=== PATIENT | female | born 1970 | race Caucasian/White ===

== ENCOUNTER 2016-10-27 18:41 | Emergency (ER) | payer MEDICAID ==
[~2016-10-27] VITALS: Ht 167.6 cm; Wt 63.5 kg
[~2016-10-27 18:41] MED LIST: NKM
[2016-10-27 18:42] VITALS: BP 119/81
--- NOTE | 2016-10-27 18:45 | Emergency Room Report ---
History of Present Illness General Chief Complaint: Back Injury Source: EMS Present Illness HPI The patient is a 46 -year-old female brought in by ambulance for back pain. She is unsure when it started or how it occurred. She does admit to having several alcoholic drinks and smoking marijuana prior to arriving. Pain is a 10 out of 10 dull ache to the lower back. She does not providing information beyond this. Allergies: Coded Allergies: No Known Allergies (Unverified , 10/27/16) Patient History Past Medical History: see triage record Pertinent Family History: none Last Menstrual Period: UNK Reviewed Nursing Documentation: PMH: Agreed, PSxH: Agreed Nursing Documentation-PMH Past Medical History: No Stated History Review of Systems All Other Systems: limited Physical Exam Vital Signs Date Time Temp Pulse Resp B/P Pulse Ox O2 Delivery O2 Flow Rate FiO2 10/27/16 18:34 98.2 76 16 119/81 94 Room Air Sp02 EP Interpretation: reviewed, normal General Appearance: no apparent distress, GCS 15, non-toxic Head: normocephalic, atraumatic Eyes: bilateral eye PERRL, bilateral eye normal inspection ENT: hearing grossly normal, normal pharynx, no angioedema, normal voice Musculoskeletal: back normal, gait/station normal, normal range of motion, non- tender Neurologic: alert, responsive, sensory intact Skin: normal color, no rash, normal turgor Medical Decision Making PA Attestation Dr. Lowry is my supervising physician. Patient management was discussed with my supervising physician Diagnostic Impression: Primary Impression: Alcohol intoxication Qualified Codes: F10.920 - Alcohol use, unspecified with intoxication, uncomplicated Additional Impression: Back pain Qualified Codes: M54.5 - Low back pain ER Course The patient is a 46-year-old female presenting for back pain Ddx considered include but not limited to alcohol intoxication, drug abuse, lumbar strain, degenerative disease, cauda equina, narcotic dependency,among others PE:NAD. Lethargic with slurred speech. Back is non tender. No deformity. No lesions. Pt is asleep She is given IV fluids and zofran The patient is given time to rest in the emergency department. Upon reevaluation, the patient has awoken and is more alert. She denies any pain at this time. She is able to ambulate without any difficulty. To be discharged home with prescription for Motrin. ER precautions are given Last Vital Signs Date Time Temp Pulse Resp B/P Pulse Ox O2 Delivery O2 Flow Rate FiO2 10/27/16 18:42 98.2 16 119/81 94 Room Air 10/27/16 18:34 76 Status: improved Disposition: HOME, SELF-CARE Condition: Improved Scripts Ibuprofen* (MOTRIN*) 600 Mg Tablet 600 MG ORAL Q8H Y for For Pain, #30 TAB 0 Refills Prov: KIRBY AGUAYO 10/27/16 KIRBY AGUAYO Oct 27, 2016 18:45
[2016-10-27 20:28] VITALS: BP 112/75
[2016-10-27] MEDS ORDERED: IBUPROFEN600 MG ORAL (21:34)
[2016-10-27 21:40] VITALS: BP 114/72
[2016-10-27 21:53] VITALS: BP 114/72
[2016-10-28] MEDS ORDERED: CYMBALTA30 MG ORAL (17:28)
== END 2016-10-27 21:53 | disposition home or self-care (01) ==
LOC: EDBD 18:41 → EMR 18:55
DX: F10.920 Alcohol use, unspecified with intoxication, uncomplicated (principal); M54.5 Low back pain; F12.90 Cannabis use, unspecified, uncomplicated
CPT/HCPCS: 96374; 96375; 99284; J2405

== ENCOUNTER 2016-10-28 15:42 | Emergency (ER) | payer MEDICAID ==
[~2016-10-28] VITALS: Ht 165.1 cm; Wt 56.7 kg
[2016-10-28 15:42] VITALS: BP 129/74
[~2016-10-28 15:42] MED LIST changes: +IBUPROFEN600 MG ORAL
--- NOTE | 2016-10-28 15:54 | Emergency Room Report ---
History of Present Illness General Chief Complaint: Pain Source: Patient (Tai Matt M.D.) Present Illness HPI Patient presents with low back pain. She was seen yesterday for the same complaint. She's been drinking alcohol. She alleged yesterday she was smoking marijuana also. She's been drinking because she's depressed because her nephew is 3 years old his dying of heart disease. She claims she's an alcoholic. The patient states that when she has pain like she does now it usually because she passing kidney stone. Denies any fevers, cough or dysuria. She states she is not at this time. 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 [employer] Last Menstrual Period: 10/23/16 Now: No Reviewed Nursing Documentation: PMH: Agreed, PSxH: Agreed (Tai Matt M.D.) Review of Systems All Other Systems: negative except mentioned in HPI (Tai Matt M.D.) Physical Exam Vital Signs Date Time Temp Pulse Resp B/P Pulse Ox O2 Delivery O2 Flow Rate FiO2 10/28/16 15:34 98.1 82 18 129/74 99 Room Air Sp02 EP Interpretation: reviewed, normal General Appearance: well appearing, no apparent distress, GCS 15, other - alcohol on breath Head: normocephalic Eyes: bilateral eye PERRL, bilateral eye Scleral Injection ENT: moist mucus membranes Neck: supple Respiratory: lungs clear, normal breath sounds Cardiovascular #1: regular rate, rhythm Cardiovascular #2: 2+ radial (R) Gastrointestinal: normal inspection, normal bowel sounds, non tender, no mass, non-distended Genitourinary: no CVA tenderness Musculoskeletal: digits/nails normal, normal range of motion, tender - lumbar area, no bony tenderness, able to ambulate Neurologic: alert, oriented x3, motor strength/tone normal, DTRs symmetric, sensory intact, other - slurred speech Psychiatric: no suicidal/homicidal ideation, depressed affect Skin: normal inspection, warm/dry (Tai Matt M.D.) Medical Decision Making Diagnostic Impression: Primary Impression: Pyelonephritis Additional Impressions: Alcohol intoxication Qualified Codes: F10.929 - Alcohol use, unspecified with intoxication, unspecified Trichomonal infection Persistent vomiting Non-obstructive renal stone L ER Course Patient presents again with alcohol ingestion and complaints of back pain. laboratory will be obtained and the patient be treated with IV hydration. In addition to that thiamine. She's complaining about nausea and we will treat that with Zofran. Leukocytosis and pyuria. Antibiotics ordered. Still complained of pain. Reglan and benadryl given. Improved. Ambulatory. Still with pain L lower back and concerned about possible renal stone. CT ordered. Patient signed out to Dr. Morocho. Laboratory Tests Test 10/28/16 16:10 10/28/16 16:20 Urine Color Pale yellow Urine Appearance Cloudy Urine pH 6 (4.5-8.0) Urine Specific [place] 1.020 (1.005-1.035) Urine Protein 3+ (NEGATIVE) H Urine Glucose (UA) Negative (NEGATIVE) Urine Ketones 4+ (NEGATIVE) H Urine Occult Blood 4+ (NEGATIVE) H Urine Nitrite Negative (NEGATIVE) Urine Bilirubin Negative (NEGATIVE) Urine Urobilinogen Normal MG/DL (0.0-1.0) Urine Leukocyte Esterase 1+ (NEGATIVE) H Urine RBC 15-20 /HPF (0 - 2) H Urine WBC 10-15 /HPF (0 - 2) H Urine Squamous Epithelial Cells Many /LPF (NONE/OCC) H Urine Bacteria Many /HPF (NONE) H Urine Trichomonas Moderate /HPF (NONE) H Urine HCG, Qualitative Negative Urine Opiates Screen Negative (NEGATIVE) Urine Barbiturates Screen Negative (NEGATIVE) Phencyclidine (PCP) Screen Negative (NEGATIVE) Urine Amphetamines Screen Negative (NEGATIVE) Urine Benzodiazepines Screen Negative (NEGATIVE) Urine Cocaine Screen Negative (NEGATIVE) Urine Marijuana (THC) Screen Positive (NEGATIVE) H White Blood Count 16.6 K/UL (4.8-10.8) H Red Blood Count 4.46 M/UL (4.20-5.40) Hemoglobin 14.3 G/DL (12.0-16.0) Hematocrit 41.0 % (37.0-47.0) Mean Corpuscular Volume 92 FL (80-99) Mean Corpuscular Hemoglobin 32.1 PG (27.0-31.0) H Mean Corpuscular Hemoglobin Concent 34.8 G/DL (32.0-36.0) Red Cell Distribution Width 13.7 % (11.6-14.8) Platelet Count 285 K/UL (150-450) Mean Platelet Volume 7.5 FL (6.5-10.1) Neutrophils (%) (Auto) 82.7 % (45.0-75.0) H Lymphocytes (%) (Auto) 9.1 % (20.0-45.0) L Monocytes (%) (Auto) 7.7 % (1.0-10.0) Eosinophils (%) (Auto) 0.0 % (0.0-3.0) Basophils (%) (Auto) 0.5 % (0.0-2.0) Sodium Level 137 mEQ/L (135-145) Potassium Level 3.7 mEQ/L (3.4-4.9) Chloride Level 90 mEQ/L (98-107) L Carbon Dioxide Level 18 mEQ/L (20-30) L Anion Gap 29 (5-15) H Blood Urea Nitrogen 23 mg/dL (7-23) Creatinine 0.8 mg/dL (0.5-0.9) Estimate Glomerular Filtration Rate > 60 mL/min (>60) Glucose Level 101 mg/dL (74-106) Calcium Level 9.0 mg/dL (8.6-10.2) Total Bilirubin 0.5 mg/dL (0.0-1.2) Aspartate Amino Transferase (AST) 51 U/L (5-40) H Alanine Aminotransferase (ALT) 22 U/L (3-33) Alkaline Phosphatase 85 U/L (35-104) Total Creatine Kinase 383 U/L (26-140) H Total Protein 7.7 g/dL (6.6-8.7) Albumin 5.1 g/dL (3.5-5.2) Globulin 2.6 g/dL Albumin/Globulin Ratio 1.9 (1.0-2.7) Salicylates Level < 1 mg/dL (10-30) L Acetaminophen Level < 10 ug/mL (10-30) L Serum Alcohol 387 mg/dL (Tai Matt M.D.) ER Course Please refer to the initial note for the history exam and presentation At this time the case was signed out pending CAT scan imaging patient has also had repeated episodes of nausea Urine sample does reveal evidence of UTI there was also evidence of trichomonas Patient's CAT scan at this time shows a nonobstructive to millimeter stone in the lower pole of the kidney on the left, there is no signs of hydronephrosis or obstructive pathology there was some hazy appearance of the central mesentery Patient has done better on repeat evaluation given the ongoing discomfort however nausea vomiting patient placed into admission secondary to insurance purposes requires transfer patient is hemodynamically stable for that Labs Test 10/28/16 16:10 10/28/16 16:20 Urine Color Pale yellow Urine Appearance Cloudy Urine pH 6 (4.5-8.0) Urine Specific [place] 1.020 (1.005-1.035) Urine Protein 3+ (NEGATIVE) Urine Glucose (UA) Negative (NEGATIVE) Urine Ketones 4+ (NEGATIVE) Urine Occult Blood 4+ (NEGATIVE) Urine Nitrite Negative (NEGATIVE) Urine Bilirubin Negative (NEGATIVE) Urine Urobilinogen Normal MG/DL (0.0-1.0) Urine Leukocyte Esterase 1+ (NEGATIVE) Urine RBC 15-20 /HPF (0 - 2) Urine WBC 10-15 /HPF (0 - 2) Urine Squamous Epithelial Cells Many /LPF (NONE/OCC) Urine Bacteria Many /HPF (NONE) Urine Trichomonas Moderate /HPF (NONE) Urine HCG, Qualitative Negative Urine Opiates Screen Negative (NEGATIVE) Urine Barbiturates Screen Negative (NEGATIVE) Phencyclidine (PCP) Screen Negative (NEGATIVE) Urine Amphetamines Screen Negative (NEGATIVE) Urine Benzodiazepines Screen Negative (NEGATIVE) Urine Cocaine Screen Negative (NEGATIVE) Urine Marijuana (THC) Screen Positive (NEGATIVE) White Blood Count 16.6 K/UL (4.8-10.8) Red Blood Count 4.46 M/UL (4.20-5.40) Hemoglobin 14.3 G/DL (12.0-16.0) Hematocrit 41.0 % (37.0-47.0) Mean Corpuscular Volume 92 FL (80-99) Mean Corpuscular Hemoglobin 32.1 PG (27.0-31.0) Mean Corpuscular Hemoglobin Concent 34.8 G/DL (32.0-36.0) Red Cell Distribution Width 13.7 % (11.6-14.8) Platelet Count 285 K/UL (150-450) Mean Platelet Volume 7.5 FL (6.5-10.1) Neutrophils (%) (Auto) 82.7 % (45.0-75.0) Lymphocytes (%) (Auto) 9.1 % (20.0-45.0) Monocytes (%) (Auto) 7.7 % (1.0-10.0) Eosinophils (%) (Auto) 0.0 % (0.0-3.0) Basophils (%) (Auto) 0.5 % (0.0-2.0) Sodium Level 137 mEQ/L (135-145) Potassium Level 3.7 mEQ/L (3.4-4.9) Chloride Level 90 mEQ/L (98-107) Carbon Dioxide Level 18 mEQ/L (20-30) Anion Gap 29 (5-15) Blood Urea Nitrogen 23 mg/dL (7-23) Creatinine 0.8 mg/dL (0.5-0.9) Estimat Glomerular Filtration Rate > 60 mL/min (>60) Glucose Level 101 mg/dL (74-106) Calcium Level 9.0 mg/dL (8.6-10.2) Total Bilirubin 0.5 mg/dL (0.0-1.2) Aspartate Amino Transf (AST/SGOT) 51 U/L (5-40) Alanine Aminotransferase (ALT/SGPT) 22 U/L (3-33) Alkaline Phosphatase 85 U/L (35-104) Total Creatine Kinase 383 U/L (26-140) Total Protein 7.7 g/dL (6.6-8.7) Albumin 5.1 g/dL (3.5-5.2) Globulin 2.6 g/dL Albumin/Globulin Ratio 1.9 (1.0-2.7) Salicylates Level < 1 mg/dL (10-30) Acetaminophen Level < 10 ug/mL (10-30) Serum Alcohol 387 mg/dL (MARISOL MOROCHO D.O.) Rhythm Strip Diag. Results EP Interpretation: yes Rhythm: NSR, no PVC's, no ectopy (Tai Matt M.D.) CT/MRI/US Diagnostic Results CT/MRI/US Diagnostic Results : Imaging Test Ordered: abd pelvis (Tai Matt M.D.) CT/MRI/US Diagnostic Results : Impression CT abdomen pelvis: Nonobstructive 2 mm stone left lower pole left kidney no hydronephrosis, no obstruction, hazy appearance of central mesentery likely mesenteritis (MARISOL MOROCHO D.O.) Last Vital Signs Date Time Temp Pulse Resp B/P Pulse Ox O2 Delivery O2 Flow Rate FiO2 10/29/16 01:13 98.7 74 16 123/76 100 Room Air Status: improved (Tai Matt M.D.) Status: improved (MARISOL MOROCHO D.O.) Disposition: XFER SHT-TRM HOSP Condition: Serious - stable for transfer Tai Matt M.D. Oct 28, 2016 15:54 MARISOL MOROCHO D.O. Oct 29, 2016 00:33
[2016-10-28] MEDS ORDERED: Tubing IV Cassette IV ONE (16:16)
[2016-10-28 16:36] LABS: BASOPHILS % (AUTO) 0.5 % (0.0-2.0); LYMPHOCYTES % (AUTO) 9.1 % (20.0-45.0); MEAN CORPUSCULAR HEMOGLOBIN 32.1 PG (27.0-31.0); MEAN CORPUSCULAR HGB CONC 34.8 G/DL (32.0-36.0); MEAN CORPUSCULAR VOLUME 92 FL (80-99); MEAN PLATELET VOLUME 7.5 FL (6.5-10.1); MONOCYTES % (AUTO) 7.7 % (1.0-10.0); NEUTROPHILS % (AUTO) 82.7 % (45.0-75.0); PLATELET COUNT 285 K/UL (150-450); RED BLOOD COUNT 4.46 M/UL (4.20-5.40); RED CELL DISTRIBUTION WIDTH 13.7 % (11.6-14.8); WHITE BLOOD COUNT 16.6 K/UL (4.8-10.8)
[2016-10-28 16:41] LABS: APPEARANCE,URINE CLOUDY; KETONES,URINE 4+ (NEGATIVE); LEUKOCYTE ESTERASE ,URINE 1+ (NEGATIVE); NITRITE,URINE NEGATIVE (NEGATIVE); PH,URINE 6 (4.5-8.0); PROTEIN,URINE 3+ (NEGATIVE); UROBILINOGEN,URINE NORMAL MG/DL (0.0-1.0)
[2016-10-28] MEDS ORDERED: Famotidine 20 MG/ 2ML VIAL IVP ONE (16:45)
[2016-10-28 16:50] LABS: RBC,URINE 15-20 /HPF (0 - 2)
[2016-10-28 16:51] LABS: BACTERIA,URINE MANY /HPF; SQUAMOUS EPITHELIAL CELL,UR MANY /LPF (NONE/OCC); TRICHOMONAS,URINE MODERATE /HPF
[2016-10-28 16:57] LABS: ACETAMINOPHEN < 10 ug/mL (10-30); ALANINE AMINOTRANSFERASE 22 U/L (3-33); ALBUMIN/GLOBULIN RATIO 1.9 (1.0-2.7); ALCOHOL 387 mg/dL; ANION GAP 29 (5-15); ASPARTATE AMINO TRANSFERASE 51 U/L (5-40); CARBON DIOXIDE 18 mEQ/L (20-30); CHLORIDE 90 mEQ/L (98-107); CREATININE 0.8 mg/dL (0.5-0.9); GLOMERULAR FILTRATION RATE > 60 mL/min (>60); HEMOLYSIS 15; POTASSIUM 3.7 mEQ/L (3.4-4.9); SODIUM 137 mEQ/L (135-145); TOTAL PROTEIN 7.7 g/dL (6.6-8.7)
[2016-10-28] MEDS ORDERED: cefTRIAXone 1 GM in NS 55 ML IVPB ONE (17:00)
[2016-10-28] MEDS ORDERED: CYMBALTA30 MG ORAL (17:28)
[2016-10-28 18:00] VITALS: BP 132/73
[2016-10-28] MEDS ORDERED: DiphenhydrAMINE 50mg/ml Inj IVP ONE (18:00)
[2016-10-28] MEDS ORDERED: Metoclopramide 10mg/2ml Inj IVP ONE (18:00)
[2016-10-28 21:06] VITALS: BP 122/75
[2016-10-28] MEDS ORDERED: metroNIDAZOLE 500mg 100 ML IVPB ONE (22:15)
[2016-10-29 00:29] VITALS: BP 123/76
[2016-10-29 01:13] VITALS: BP 123/76
--- NOTE | 2016-10-29 09:42 | Diagnostic Imaging Report ---
Indication: Abdominal pain Technique: Continuous helical transaxial imaging of the abdomen and pelvis was obtained from the lung bases to the pubic symphysis. No intravenous contrast was administered. Coronal 2-D reformats were also obtained. Total Dose length Product (DLP): [address] Dose Index Volume (CTDIvol): 13 mGy Comparison: none Findings: There is a 2 mm stone in the lower pole the left kidney. There is no hydronephrosis demonstrated bilaterally. Urinary bladder is mildly distended. The liver is hypodense consistent with fatty infiltration. No evidence of free fluid or free air. There is a small right inguinal hernia containing fat. Uterus is noted. Appendix is normal. Lung bases are clear. Impression: Small nonobstructive stone in the left kidney Normal appendix Fatty liver Small right inguinal hernia containing fat [facility] has communicated the preliminary results to the Emergency Department. Their findings are largely concordant with this report. The CT scanner at [facility] is accredited by the [employer] and the scans are performed using dose optimization techniques as appropriate to a performed exam including Automatic Exposure control.
== END 2016-10-29 01:13 | disposition short-term general hospital (02) ==
LOC: EDBD 15:42 → EMR 16:12
DX: N12 Tubulo-interstitial nephritis, not specified as acute or chronic (principal); F10.129 Alcohol abuse with intoxication, unspecified; Y90.8 Blood alcohol level of 240 mg/100 ml or more; R11.10 Vomiting, unspecified; A59.9 Trichomoniasis, unspecified; N20.0 Calculus of kidney; F12.10 Cannabis abuse, uncomplicated; N39.0 Urinary tract infection, site not specified
CPT/HCPCS: 36415; 74176; 80053; 80300; 80329; 81003; 81025; 82550; 85025; 87086; 96360; 96361; 96374; 96375; 99285; J0696; J1200; J2405; J2765; S0028

== ENCOUNTER 2017-04-04 15:25 | Emergency (ER) | payer MEDICAID ==
[~2017-04-04] VITALS: Ht 165.1 cm; Wt 59.0 kg
[~2017-04-04 15:25] MED LIST changes: +CYMBALTA30 MG ORAL
--- NOTE | 2017-04-04 15:51 | Emergency Room Report ---
History of Present Illness General Chief Complaint: Nausea, Vomiting, and Diarrhea Source: Patient Present Illness HPI Patient is a 46-year-old female who presents with complaints of emesis that began at 3 this morning. She states she's had multiple episodes of emesis since that time. Last episode of emesis upon arrival. She denies any diarrhea , abdominal pain, fever, chills or associated symptoms. She denies any sick contacts and states she has not eaten anything out of the ordinary. Allergies: Coded Allergies: No Known Allergies (Unverified , 10/27/16) Patient History Last Menstrual Period: last week Reviewed Nursing Documentation: PMH: Agreed, PSxH: Agreed Nursing Documentation-PMH Past Medical History: No History, Except For Hx Hypertension: Yes History Of Psychiatric Problem: Yes - Anxiety Review of Systems Gastrointestinal: Reports: nausea, vomiting All Other Systems: negative except mentioned in HPI Physical Exam Vital Signs Date Time Temp Pulse Resp B/P (MAP) Pulse Ox O2 Delivery O2 Flow Rate FiO2 04/04/17 15:22 98.2 65 18 138/100 98 Room Air Sp02 EP Interpretation: reviewed, normal General Appearance: no apparent distress, alert, GCS 15, non-toxic Head: normocephalic, atraumatic Eyes: bilateral eye normal inspection, bilateral eye PERRL ENT: hearing grossly normal, normal pharynx, no angioedema, normal voice Neck: full range of motion, supple/symm/no masses Respiratory: chest non-tender, lungs clear, normal breath sounds, speaking full sentences Cardiovascular #1: regular rate, rhythm, no edema Cardiovascular #2: 2+ carotid (R), 2+ carotid (L), 2+ radial (R), 2+ radial (L) , 2+ dorsalis pedis (R), 2+ dorsalis pedis (L) Gastrointestinal: normal bowel sounds, non tender, soft, non-distended, no guarding, no rebound Rectal: deferred Genitourinary: normal inspection, no CVA tenderness, other - negative murphys, negative mcburneys, negative rovsings Musculoskeletal: back normal, gait/station normal, normal range of motion, non- tender, calf tenderness Neurologic: alert, oriented x3, responsive, motor strength/tone normal, sensory intact, speech normal Psychiatric: judgement/insight normal, memory normal, mood/affect normal, no suicidal/homicidal ideation Reflexes: 3+ bicep (R), 3+ bicep (L), 3+ tricep (R), 3+ tricep (L), 3+ knee (R) , 3+ knee (L) Skin: normal color, no rash, warm/dry, well hydrated Lymphatic: no adenopathy Medical Decision Making PA Attestation supervising physician Dr. Austin Diagnostic Impression: Primary Impression: Nausea & vomiting Additional Impression: Acute cystitis ER Course Labs are within normal limits. Patient is given Zofran twice with improvement of symptoms on reevaluation. Patient initially vomiting after first dose of Zofran, second dose of Zofran was given with resolution of symptoms. labs are within normal limits, no leukocytosis. LFTs are normal. Patient is found to have a UTI on UA. No evidence of pyelonephritis. Low index of suspicion for appendicitis or cholecystitis. She was given Zofran and normal saline with improvement in symptoms. Discharged home with Zofran and Keflex. Instructed to follow up with PCP for evaluation. Imaging considered not indicated at this time. Patient understands and is agreeable to plan Laboratory Tests Test 04/04/17 16:15 White Blood Count 8.6 K/UL (4.8-10.8) Red Blood Count 4.54 M/UL (4.20-5.40) Hemoglobin 13.9 G/DL (12.0-16.0) Hematocrit 41.4 % (37.0-47.0) Mean Corpuscular Volume 91 FL (80-99) Mean Corpuscular Hemoglobin 30.5 PG (27.0-31.0) Mean Corpuscular Hemoglobin Concent 33.5 G/DL (32.0-36.0) Red Cell Distribution Width 15.3 % (11.6-14.8) H Platelet Count 307 K/UL (150-450) Mean Platelet Volume 7.0 FL (6.5-10.1) Neutrophils (%) (Auto) 79.0 % (45.0-75.0) H Lymphocytes (%) (Auto) 12.8 % (20.0-45.0) L Monocytes (%) (Auto) 7.7 % (1.0-10.0) Eosinophils (%) (Auto) 0.0 % (0.0-3.0) Basophils (%) (Auto) 0.5 % (0.0-2.0) Urine Color Yellow Urine Appearance Slightly cloudy Urine pH 7 (4.5-8.0) Urine Specific [place] 1.015 (1.005-1.035) Urine Protein 3+ (NEGATIVE) H Urine Glucose (UA) Negative (NEGATIVE) Urine Ketones 2+ (NEGATIVE) H Urine Occult Blood 3+ (NEGATIVE) H Urine Nitrite Positive (NEGATIVE) H Urine Bilirubin Negative (NEGATIVE) Urine Urobilinogen 1 MG/DL (0.0-1.0) H Urine Leukocyte Esterase 2+ (NEGATIVE) H Urine RBC 15-20 /HPF (0 - 2) H Urine WBC 10-15 /HPF (0 - 2) H Urine Squamous Epithelial Cells Few /LPF (NONE/OCC) Urine Bacteria Many /HPF (NONE) H Urine HCG, Qualitative Negative Sodium Level 134 MMOL/L (136-145) L Potassium Level 4.3 MMOL/L (3.5-5.1) Chloride Level 98 MMOL/L (98-107) Carbon Dioxide Level 22 MMOL/L (21-32) Anion Gap 14 mmol/L (5-15) Blood Urea Nitrogen 10 mg/dL (7-18) Creatinine 0.8 MG/DL (0.55-1.30) Estimate Glomerular Filtration Rate > 60 mL/min (>60) Glucose Level 105 MG/DL (74-106) Calcium Level 9.4 MG/DL (8.5-10.1) Total Bilirubin 0.7 MG/DL (0.2-1.0) Aspartate Amino Transferase (AST) 38 U/L (15-37) H Alanine Aminotransferase (ALT) 19 U/L (12-78) Alkaline Phosphatase 85 U/L (46-116) Total Protein 8.2 G/DL (6.4-8.2) Albumin 4.2 G/DL (3.4-5.0) Globulin 4.0 g/dL Albumin/Globulin Ratio 1.0 (1.0-2.7) Last Vital Signs Date Time Temp Pulse Resp B/P (MAP) Pulse Ox O2 Delivery O2 Flow Rate FiO2 04/04/17 15:22 98.2 65 18 138/100 98 Room Air Status: improved Disposition: HOME, SELF-CARE Condition: Stable Scripts Ondansetron Odt* (ZOFRAN ODT*) 4 Mg Tab.rapdis 4 MG ORAL Q6H Y for Nausea & Vomiting, #30 TAB Prov: Jennifer Mae 04/04/17 Cephalexin* (KEFLEX*) 500 Mg Capsule 500 MG ORAL EVERY 12 HOURS, #14 CAP 0 Refills Prov: Jennifer Mae 04/04/17 Jennifer Mae Apr 04, 2017 15:51
[2017-04-04 16:41] LABS: APPEARANCE,URINE SLIGHTLY CLOUDY; BILIRUBIN, URINE NEGATIVE (NEGATIVE); GLUCOSE, URINE (UA) NEGATIVE (NEGATIVE); KETONES,URINE 2+ (NEGATIVE); LEUKOCYTE ESTERASE ,URINE 2+ (NEGATIVE); NITRITE,URINE POSITIVE (NEGATIVE); PH,URINE 7 (4.5-8.0); PROTEIN,URINE 3+ (NEGATIVE); UROBILINOGEN,URINE 1 MG/DL (0.0-1.0)
[2017-04-04 16:45] LABS: ANION GAP 14 mmol/L (5-15); BLOOD UREA NITROGEN 10 mg/dL (7-18); CALCIUM 9.4 MG/DL (8.5-10.1); CARBON DIOXIDE 22 MMOL/L (21-32); CHLORIDE 98 MMOL/L (98-107); CREATININE 0.8 MG/DL (0.55-1.30); POTASSIUM 4.3 MMOL/L (3.5-5.1); SODIUM 134 MMOL/L (136-145)
[2017-04-04 16:50] LABS: ALANINE AMINOTRANSFERASE 19 U/L (12-78); ALBUMIN 4.2 G/DL (3.4-5.0); ALKALINE PHOSPHATASE 85 U/L (46-116); ASPARTATE AMINO TRANSFERASE 38 U/L (15-37); BILIRUBIN,TOTAL 0.7 MG/DL (0.2-1.0)
[2017-04-04 16:52] LABS: COLOR,URINE YELLOW
[2017-04-04 17:01] LABS: BASOPHILS % (AUTO) 0.5 % (0.0-2.0); HEMATOCRIT 41.4 % (37.0-47.0); HEMOGLOBIN 13.9 G/DL (12.0-16.0); LYMPHOCYTES % (AUTO) 12.8 % (20.0-45.0); MEAN CORPUSCULAR VOLUME 91 FL (80-99); MONOCYTES % (AUTO) 7.7 % (1.0-10.0); PLATELET COUNT 307 K/UL (150-450); RED BLOOD COUNT 4.54 M/UL (4.20-5.40); RED CELL DISTRIBUTION WIDTH 15.3 % (11.6-14.8); WHITE BLOOD COUNT 8.6 K/UL (4.8-10.8)
[2017-04-04 17:30] VITALS: BP 108/68
[2017-04-04] MEDS ORDERED: ZOFRAN ODT4 MG ORAL (18:52)
[2017-04-04] MEDS ORDERED: CEPHALEXIN500 MG ORAL (18:52)
[2017-04-04 19:02] VITALS: BP 114/74
[2017-05-08] MEDS ORDERED: NKM (14:56)
== END 2017-04-04 19:02 | disposition home or self-care (01) ==
LOC: EDBD 15:25 → EMR 15:58
DX: R11.2 Nausea with vomiting, unspecified (principal); N30.00 Acute cystitis without hematuria; I10 Essential (primary) hypertension; F41.9 Anxiety disorder, unspecified
CPT/HCPCS: 36415; 80053; 81001; 81025; 85025; 87086; 87181; 96361; 96374; 96375; 99284; J2405

== ENCOUNTER 2017-05-08 14:56 | Emergency (ER) | payer MEDICAID ==
[~2017-05-08] VITALS: Ht 165.1 cm; Wt 59.0 kg
[~2017-05-08 14:56] MED LIST changes: +CEPHALEXIN500 MG ORAL; +ZOFRAN ODT4 MG ORAL
[2017-05-08 15:08] VITALS: BP 134/69
[2017-05-08] MEDS ORDERED: Morphine Sulfate 4mg/ml Inj IVP ONE ×2 (15:15→17:00)
[2017-05-08 15:44] LABS: APPEARANCE,URINE CLEAR; BILIRUBIN, URINE NEGATIVE (NEGATIVE); COLOR,URINE PALE YELLOW; GLUCOSE, URINE (UA) NEGATIVE (NEGATIVE); HEMATOCRIT 43.3 % (37.0-47.0); HEMOGLOBIN 14.3 G/DL (12.0-16.0); KETONES,URINE 4+ (NEGATIVE); LEUKOCYTE ESTERASE ,URINE NEGATIVE (NEGATIVE); MEAN CORPUSCULAR VOLUME 94 FL (80-99); NITRITE,URINE NEGATIVE (NEGATIVE); PH,URINE 5 (4.5-8.0); PLATELET COUNT 345 K/UL (150-450); PROTEIN,URINE 2+ (NEGATIVE); RED CELL DISTRIBUTION WIDTH 16.3 % (11.6-14.8); UROBILINOGEN,URINE NORMAL MG/DL (0.0-1.0); WHITE BLOOD COUNT 15.1 K/UL (4.8-10.8)
[2017-05-08 15:46] LABS: BASOPHILS % (AUTO) 0.6 % (0.0-2.0); LYMPHOCYTES % (AUTO) 4.3 % (20.0-45.0); MONOCYTES % (AUTO) 3.9 % (1.0-10.0); NEUTROPHILS % (AUTO) 91.2 % (45.0-75.0)
[2017-05-08 16:05] LABS: ALANINE AMINOTRANSFERASE 32 U/L (12-78); ALBUMIN 4.1 G/DL (3.4-5.0); ALKALINE PHOSPHATASE 102 U/L (46-116); ANION GAP 31 mmol/L (5-15); ASPARTATE AMINO TRANSFERASE 57 U/L (15-37); BILIRUBIN,TOTAL 0.3 MG/DL (0.2-1.0); BLOOD UREA NITROGEN 12 mg/dL (7-18); CALCIUM 8.9 MG/DL (8.5-10.1); CHLORIDE 92 MMOL/L (98-107); CREATININE 0.7 MG/DL (0.55-1.30); POTASSIUM 4.7 MMOL/L (3.5-5.1); SODIUM 132 MMOL/L (136-145)
[2017-05-08 16:11] LABS: CARBON DIOXIDE 9 MMOL/L (21-32)
--- NOTE | 2017-05-08 16:57 | Emergency Room Report ---
History of Present Illness General Chief Complaint: Abdominal Pain Source: Patient Present Illness HPI 46-year-old female presents to ED for evaluation. Brought in by EMS for abdominal pain. Started this morning. Sharp, 9 out of 10, localized right lower quadrant. Denies fevers or chills. Notes nausea and vomiting. Admits to alcohol use. No other aggravating or relieving factors. Denies any other associated symptoms Allergies: Coded Allergies: No Known Allergies (Unverified , 10/27/16) Patient History Past Medical History: HTN Past Surgical History: none Pertinent Family History: none Social History: Denies: smoking, alcohol use, drug use Last Menstrual Period: 05/01/17 Now: No Immunizations: UTD Reviewed Nursing Documentation: PMH: Agreed, PSxH: Agreed Nursing Documentation-PMH Hx Hypertension: Yes Review of Systems All Other Systems: negative except mentioned in HPI Physical Exam Vital Signs Date Time Temp Pulse Resp B/P (MAP) Pulse Ox O2 Delivery O2 Flow Rate FiO2 05/08/17 14:52 98.8 124 22 129/83 94 Room Air 98.8 Sp02 EP Interpretation: reviewed, normal General Appearance: alert, GCS 15, non-toxic, mild distress Head: normocephalic, atraumatic Eyes: bilateral eye normal inspection, bilateral eye PERRL ENT: hearing grossly normal, normal pharynx, no angioedema, normal voice Neck: full range of motion, supple/symm/no masses Respiratory: chest non-tender, lungs clear, normal breath sounds, speaking full sentences Cardiovascular #1: regular rate, rhythm, no edema Cardiovascular #2: 2+ carotid (R), 2+ carotid (L), 2+ radial (R), 2+ radial (L) , 2+ dorsalis pedis (R), 2+ dorsalis pedis (L) Gastrointestinal: normal bowel sounds, soft, non-distended, no guarding, no rebound, tenderness - RLQ Rectal: deferred Genitourinary: normal inspection, no CVA tenderness Musculoskeletal: back normal, gait/station normal, normal range of motion, non- tender Neurologic: alert, oriented x3, responsive, motor strength/tone normal, sensory intact, speech normal Psychiatric: judgement/insight normal, memory normal, mood/affect normal, no suicidal/homicidal ideation Reflexes: 3+ bicep (R), 3+ bicep (L), 3+ tricep (R), 3+ tricep (L), 3+ knee (R) , 3+ knee (L) Skin: normal color, no rash, warm/dry, well hydrated Lymphatic: no adenopathy Medical Decision Making Diagnostic Impression: Primary Impression: Colitis ER Course Hospital Course 46-year-old F presents to ED with abdominal pain Differential diagnosis includes-appendicitis, cholecystitis, small bowel obstruction, gastritis, Clinical course Patient placed on stretcher. After initial history and physical I ordered labs , IV fluids, pain medications and CT scan Labs - noted leukocytosis, AG 31, CO2 low, LFTs normal, UA unremarkable CT scan shows ascending colitis Upon reassessment, patient states pain has improved. Discussed findings with patient. Agreed that patient be safely discharged home with antibiotics I feel this is a highly complex case requiring extensive working including EKG/ Rhythm strip, Xray/CT/US, Blood/urine lab work, repeat exams while in ED, and administration of strong opiates/narcotics for pain control, admission to hospital or close patient follow up. Diagnosis - colitis Stable and discharged to home with Rx Cipro, Zantac, Tylenol #3, Zofran. Followup with PMD. Return to ED if symptoms recur or worsen Labs Test 05/08/17 15:27 White Blood Count 15.1 K/UL (4.8-10.8) Red Blood Count 4.60 M/UL (4.20-5.40) Hemoglobin 14.3 G/DL (12.0-16.0) Hematocrit 43.3 % (37.0-47.0) Mean Corpuscular Volume 94 FL (80-99) Mean Corpuscular Hemoglobin 31.0 PG (27.0-31.0) Mean Corpuscular Hemoglobin Concent 32.9 G/DL (32.0-36.0) Red Cell Distribution Width 16.3 % (11.6-14.8) Platelet Count 345 K/UL (150-450) Mean Platelet Volume 7.0 FL (6.5-10.1) Neutrophils (%) (Auto) 91.2 % (45.0-75.0) Lymphocytes (%) (Auto) 4.3 % (20.0-45.0) Monocytes (%) (Auto) 3.9 % (1.0-10.0) Eosinophils (%) (Auto) 0.0 % (0.0-3.0) Basophils (%) (Auto) 0.6 % (0.0-2.0) Urine Color Pale yellow Urine Appearance Clear Urine pH 5 (4.5-8.0) Urine Specific [place] 1.025 (1.005-1.035) Urine Protein 2+ (NEGATIVE) Urine Glucose (UA) Negative (NEGATIVE) Urine Ketones 4+ (NEGATIVE) Urine Occult Blood 2+ (NEGATIVE) Urine Nitrite Negative (NEGATIVE) Urine Bilirubin Negative (NEGATIVE) Urine Urobilinogen Normal MG/DL (0.0-1.0) Urine Leukocyte Esterase Negative (NEGATIVE) Urine RBC 0-2 /HPF (0 - 2) Urine WBC 0-2 /HPF (0 - 2) Urine Squamous Epithelial Cells Few /LPF (NONE/OCC) Urine Bacteria Occasional /HPF (NONE) Urine HCG, Qualitative Negative Sodium Level 132 MMOL/L (136-145) Potassium Level 4.7 MMOL/L (3.5-5.1) Chloride Level 92 MMOL/L (98-107) Carbon Dioxide Level 9 MMOL/L (21-32) Anion Gap 31 mmol/L (5-15) Blood Urea Nitrogen 12 mg/dL (7-18) Creatinine 0.7 MG/DL (0.55-1.30) Estimat Glomerular Filtration Rate > 60 mL/min (>60) Glucose Level 75 MG/DL (74-106) Calcium Level 8.9 MG/DL (8.5-10.1) Total Bilirubin 0.3 MG/DL (0.2-1.0) Aspartate Amino Transf (AST/SGOT) 57 U/L (15-37) Alanine Aminotransferase (ALT/SGPT) 32 U/L (12-78) Alkaline Phosphatase 102 U/L (46-116) Total Protein 8.2 G/DL (6.4-8.2) Albumin 4.1 G/DL (3.4-5.0) Globulin 4.1 g/dL Albumin/Globulin Ratio 1.0 (1.0-2.7) Lipase 89 U/L (73-393) Urine Opiates Screen Negative (NEGATIVE) Urine Barbiturates Screen Negative (NEGATIVE) Phencyclidine (PCP) Screen Negative (NEGATIVE) Urine Amphetamines Screen Negative (NEGATIVE) Urine Benzodiazepines Screen Negative (NEGATIVE) Urine Cocaine Screen Negative (NEGATIVE) Urine Marijuana (THC) Screen Positive (NEGATIVE) CT/MRI/US Diagnostic Results CT/MRI/US Diagnostic Results : Imaging Test Ordered: CT A/P Impression colitis in ascending colon Last Vital Signs Date Time Temp Pulse Resp B/P (MAP) Pulse Ox O2 Delivery O2 Flow Rate FiO2 05/08/17 16:54 98.8 05/08/17 15:08 122 26 134/69 100 Room Air Status: improved Disposition: HOME, SELF-CARE Condition: Stable Scripts Ranitidine Hcl* (ZANTAC*) 150 Mg Tablet 150 MG ORAL TWICE A DAY, #30 TAB Prov: NATALIA DAMICO M.D. 05/08/17 Ondansetron Odt* (ZOFRAN ODT*) 4 Mg Tab.rapdis 4 MG ORAL Q6H Y for Nausea & Vomiting, #30 TAB 0 Refills Prov: NATALIA DAMICO M.D. 05/08/17 Acetaminophen With Codeine (T#3) (TYLENOL #3 TAB*) Y Tab 1 TAB ORAL Q8H Y for For Pain, #20 TAB Prov: NATALIA DAMICO M.D. 05/08/17 Ciprofloxacin Hcl* (CIPROFLOXACIN HCL*) 500 Mg Tablet 500 MG ORAL Q12H, #14 TAB 0 Refills Prov: NATALIA DAMICO M.D. 05/08/17 Referrals: [facility]ERR[facility] (PCP) NATALIA DAMICO M.D. May 08, 2017 16:57
[2017-05-08] MEDS ORDERED: Ketorolac 30mg Inj IV ONE (17:00)
[2017-05-08] MEDS ORDERED: CIPROFLOXACIN500 M2 ORAL (18:07)
[2017-05-08] MEDS ORDERED: ACETAMINOPHEN-1 EAC1 ORAL (18:07)
[2017-05-08] MEDS ORDERED: ZOFRAN ODT4 MG ORAL (18:07)
[2017-05-08] MEDS ORDERED: RANITIDINE HCL150 MG ORAL (18:07)
[2017-05-08 18:31] VITALS: BP 134/69
--- NOTE | 2017-05-09 08:35 | Diagnostic Imaging Report ---
Clinical Indication: Abdominal pain started this morning right lower quadrant 9 out of 10 Technique: No oral contrast utilized, per emergency room physician request IV administration nonionic contrast. Venous phase spiral acquisition obtained through the abdomen and pelvis. Multiplanar reconstructions were generated. Total dose length product 624.26 mGycm. CTDIvol(s) 11.63 mGy. Dose reduction achieved using automated exposure control Comparison: 10/28/2016 Findings: The appendix is normal. There is wall thickening of the cecum and ascending colon. This is a new finding. No evidence of diverticulosis or diverticulitis. No small bowel distention. No free or loculated intraperitoneal air or fluid. There is a small fat-containing umbilical hernia. There is mild wall thickening of the distal esophagus. The stomach is unremarkable. The duodenum is unremarkable. As previously, the liver is diffusely hypoattenuating, consistent with fatty change. No focal abnormality. The gallbladder is distended, but no stones or wall thickening demonstrated. No biliary ductal dilatation. The pancreas, spleen, adrenals, right kidney are unremarkable. The left kidney demonstrates a subcentimeter low-attenuation lesion which is too small to characterize. The previously demonstrated left lower pole renal calculus is probably present but much less conspicuous currently, obscured due to the use of contrast administration on the current exam. No hydronephrosis or ureteral calculi. No retroperitoneal or mesenteric mass or adenopathy. No pelvic mass or adenopathy. The left ovary is somewhat homogeneous, may contain a hemorrhagic follicle The included lung bases are clear. The bones are unremarkable except for mild scoliotic deformity. Impression: Wall thickening of the cecum and ascending colon, concerning for colitis. Fatty liver Distal esophageal wall thickening, could indicate esophagitis. Correlate with clinical findings Subcentimeter left renal lesion, too small to characterize, most likely benign simple cyst Probable nonobstructive left renal calculus again demonstrated Incidental findings as noted, including small fat-containing umbilical hernia, possible hemorrhagic follicle left ovary, very mild scoliosis. This agrees with the preliminary interpretation provided overnight by [facility] teleradiology service. The CT scanner at [facility] is accredited by the [employer] and the scans are performed using protocols designed to limit radiation exposure to as low as reasonably achievable to attain images of sufficient resolution adequate for diagnostic evaluation.
== END 2017-05-08 18:36 | disposition home or self-care (01) ==
LOC: EDBD 14:56 → EMR 15:21
DX: K52.9 Noninfective gastroenteritis and colitis, unspecified (principal); I10 Essential (primary) hypertension; R51 Headache; K76.0 Fatty (change of) liver, not elsewhere classified
CPT/HCPCS: 36415; 74177; 80053; 80307; 81003; 81025; 83690; 85025; 96361; 96374; 96375; 96376; 99284; J1885; J2270; J2405; Q9967

== ENCOUNTER 2017-05-09 10:26 | Emergency (ER) | payer MEDICAID ==
[~2017-05-09] VITALS: Ht 165.1 cm; Wt 61.2 kg
[~2017-05-09 10:26] MED LIST changes: +ACETAMINOPHEN-1 EAC1 ORAL; +CIPROFLOXACIN500 M2 ORAL; +RANITIDINE HCL150 MG ORAL
[2017-05-09] MEDS ORDERED: DiphenhydrAMINE 50mg/ml Inj IVP ONE (10:30)
[2017-05-09 11:16] VITALS: BP 130/80
[2017-05-09 11:31] LABS: BASOPHILS % (AUTO) 0.7 % (0.0-2.0); EOSINOPHILS % (AUTO) 0.1 % (0.0-3.0); HEMATOCRIT 41.6 % (37.0-47.0); HEMOGLOBIN 13.6 G/DL (12.0-16.0); LYMPHOCYTES % (AUTO) 11.3 % (20.0-45.0); MEAN CORPUSCULAR VOLUME 94 FL (80-99); MONOCYTES % (AUTO) 9.6 % (1.0-10.0); NEUTROPHILS % (AUTO) 78.3 % (45.0-75.0); PLATELET COUNT 287 K/UL (150-450); RED BLOOD COUNT 4.44 M/UL (4.20-5.40); WHITE BLOOD COUNT 8.3 K/UL (4.8-10.8)
[2017-05-09 11:43] LABS: INR 0.9 (0.9-1.1)
[2017-05-09 11:44] LABS: ANION GAP 20 mmol/L (5-15); BLOOD UREA NITROGEN 9 mg/dL (7-18); CALCIUM 9.1 MG/DL (8.5-10.1); CARBON DIOXIDE 15 MMOL/L (21-32); CHLORIDE 96 MMOL/L (98-107); CREATININE 0.9 MG/DL (0.55-1.30); POTASSIUM 4.4 MMOL/L (3.5-5.1); SODIUM 131 MMOL/L (136-145)
[2017-05-09 11:49] LABS: ALANINE AMINOTRANSFERASE 34 U/L (12-78); ALBUMIN 4.1 G/DL (3.4-5.0); ALBUMIN/GLOBULIN RATIO 1.1 (1.0-2.7); ALKALINE PHOSPHATASE 94 U/L (46-116); ASPARTATE AMINO TRANSFERASE 58 U/L (15-37); BILIRUBIN,TOTAL 0.6 MG/DL (0.2-1.0)
[2017-05-09 12:24] LABS: APPEARANCE,URINE CLEAR; BILIRUBIN, URINE NEGATIVE (NEGATIVE); COLOR,URINE PALE YELLOW; GLUCOSE, URINE (UA) NEGATIVE (NEGATIVE); KETONES,URINE 4+ (NEGATIVE); LEUKOCYTE ESTERASE ,URINE 1+ (NEGATIVE); NITRITE,URINE NEGATIVE (NEGATIVE); PH,URINE 6 (4.5-8.0); PROTEIN,URINE 2+ (NEGATIVE); UROBILINOGEN,URINE NORMAL MG/DL (0.0-1.0)
[2017-05-09 13:05] VITALS: BP 115/71
[2017-05-09] MEDS ORDERED: fentaNYL 100 mcg/2 mL IV ONE (14:00)
[2017-05-09] MEDS ORDERED: cefTRIAXone 1 GM in NS 55 ML IVPB ONE (14:15)
--- NOTE | 2017-05-09 14:56 | Emergency Room Report ---
History of Present Illness General Chief Complaint: Nausea Source: Patient Present Illness HPI Patient was seen here yesterday with vomiting and abdominal pain. CT performed and dx colitis. Prescribed ranitidine, cipro, zofran and tylenol #3. Not fill rx. Still with vomiting and weakness. Pain yesterday was RLQ. Now denies pain , but doesn't feel well. Prior was drinking heavily. No hematemesis or coffee grounds. No melena. Not move bowels today, but last was slightly loose. Not . No dysuria. No ulcerative colitis/inflammatory bowel disease or IBS in past. No h/o pancreatitis. Does not have sponsor. Last EtOH 2 days ago. H/O renal stone in the past. 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 Nursing Documentation: PMH: Agreed, PSxH: Agreed Nursing Documentation-PMH Hx Hypertension: Yes Review of Systems All Other Systems: negative except mentioned in HPI Physical Exam Vital Signs Date Time Temp Pulse Resp B/P (MAP) Pulse Ox O2 Delivery O2 Flow Rate FiO2 05/09/17 10:20 97.9 10 18 138/90 98 Room Air 97.9 Sp02 EP Interpretation: reviewed, normal General Appearance: well appearing, no apparent distress, GCS 15 Head: normocephalic Eyes: bilateral eye normal inspection, bilateral eye PERRL ENT: moist mucus membranes Neck: supple Respiratory: lungs clear, normal breath sounds Cardiovascular #1: regular rate, rhythm Cardiovascular #2: 2+ radial (R) Gastrointestinal: normal inspection, normal bowel sounds, non tender, no mass, no organomegaly, non-distended Musculoskeletal: back normal, gait/station normal, normal range of motion Neurologic: alert, oriented x3, grossly normal Psychiatric: mood/affect normal Skin: normal inspection, warm/dry Medical Decision Making Diagnostic Impression: Primary Impression: Nausea and vomiting in adult patient Additional Impressions: Gastritis Qualified Codes: K29.20 - Alcoholic gastritis without bleeding Colitis ER Course Patient returns with vomiting and weakness with dx colitis post CT. DDx: gastritis, GItis, pancreatitis, dehydration, alcohol dysequilibrium amongst others. Evaluation with labs. Imagining not indicated. Treatment with IV hydration and compazine, pepcid and benadryl. Labs with normal WBC, low bicarb, minimally low sodium. Pyuria. Rocephin given IV. Tolerating PO. Improved with treatment. Advised to fill Rx's as all needed there. Also advised to return to [facility]. Laboratory Tests Test 05/09/17 11:10 05/09/17 12:15 White Blood Count 8.3 K/UL (4.8-10.8) Red Blood Count 4.44 M/UL (4.20-5.40) Hemoglobin 13.6 G/DL (12.0-16.0) Hematocrit 41.6 % (37.0-47.0) Mean Corpuscular Volume 94 FL (80-99) Mean Corpuscular Hemoglobin 30.7 PG (27.0-31.0) Mean Corpuscular Hemoglobin Concent 32.8 G/DL (32.0-36.0) Red Cell Distribution Width 16.0 % (11.6-14.8) H Platelet Count 287 K/UL (150-450) Mean Platelet Volume 7.1 FL (6.5-10.1) Neutrophils (%) (Auto) 78.3 % (45.0-75.0) H Lymphocytes (%) (Auto) 11.3 % (20.0-45.0) L Monocytes (%) (Auto) 9.6 % (1.0-10.0) Eosinophils (%) (Auto) 0.1 % (0.0-3.0) Basophils (%) (Auto) 0.7 % (0.0-2.0) Prothrombin Time 9.7 SEC (9.30-11.50) Prothrombin Time INR 0.9 (0.9-1.1) PTT 26 SEC (23-33) Sodium Level 131 MMOL/L (136-145) L Potassium Level 4.4 MMOL/L (3.5-5.1) Chloride Level 96 MMOL/L (98-107) L Carbon Dioxide Level 15 MMOL/L (21-32) L Anion Gap 20 mmol/L (5-15) H Blood Urea Nitrogen 9 mg/dL (7-18) Creatinine 0.9 MG/DL (0.55-1.30) Estimate Glomerular Filtration Rate > 60 mL/min (>60) Glucose Level 84 MG/DL (74-106) Calcium Level 9.1 MG/DL (8.5-10.1) Total Bilirubin 0.6 MG/DL (0.2-1.0) Aspartate Amino Transferase (AST) 58 U/L (15-37) H Alanine Aminotransferase (ALT) 34 U/L (12-78) Alkaline Phosphatase 94 U/L (46-116) Total Protein 8.0 G/DL (6.4-8.2) Albumin 4.1 G/DL (3.4-5.0) Globulin 3.9 g/dL Albumin/Globulin Ratio 1.1 (1.0-2.7) Lipase 160 U/L (73-393) Urine Color Pale yellow Urine Appearance Clear Urine pH 6 (4.5-8.0) Urine Specific [place] 1.025 (1.005-1.035) Urine Protein 2+ (NEGATIVE) H Urine Glucose (UA) Negative (NEGATIVE) Urine Ketones 4+ (NEGATIVE) H Urine Occult Blood 3+ (NEGATIVE) H Urine Nitrite Negative (NEGATIVE) Urine Bilirubin Negative (NEGATIVE) Urine Urobilinogen Normal MG/DL (0.0-1.0) Urine Leukocyte Esterase 1+ (NEGATIVE) H Urine RBC 2-4 /HPF (0 - 2) H Urine WBC 5-10 /HPF (0 - 2) H Urine Squamous Epithelial Cells Moderate /LPF (NONE/OCC) H Urine Bacteria Few /HPF (NONE) Last Vital Signs Date Time Temp Pulse Resp B/P (MAP) Pulse Ox O2 Delivery O2 Flow Rate FiO2 05/09/17 16:15 97.9 92 19 120/74 100 Room Air 97.9 Status: improved Disposition: HOME, SELF-CARE Condition: Improved Referrals: [facility] (PCP) Tai Matt M.D. May 09, 2017 14:56
[2017-05-09 16:15] VITALS: BP 120/74
== END 2017-05-09 16:15 | disposition home or self-care (01) ==
LOC: EDBD 10:26 → EMR 12:25
DX: K29.70 Gastritis, unspecified, without bleeding (principal); I10 Essential (primary) hypertension
CPT/HCPCS: 36415; 80053; 81003; 83690; 85025; 85610; 85730; 96361; 96365; 96375; 99284; J0696; J0780; J1200; S0028

== ENCOUNTER 2017-05-10 10:14 | Emergency (ER) | payer MEDICAID ==
[~2017-05-10] VITALS: Ht 167.6 cm; Wt 59.0 kg
[2017-05-10 10:30] VITALS: BP 130/81
[2017-05-10] MEDS ORDERED: Lidocaine 2% Visc 15ml soln ORAL ONE (11:15)
[2017-05-10] MEDS ORDERED: Mylanta II UD 30ml ORAL ONE (11:15)
[2017-05-10] MEDS ORDERED: Dicyclomine HCl 10mg/5ml oral soln ORAL ONE (11:15)
[2017-05-10 12:05] VITALS: BP 170/100
--- NOTE | 2017-05-11 14:08 | Emergency Room Report ---
History of Present Illness General Chief Complaint: Abdominal Pain Source: Patient Present Illness HPI 46-year-old female presents to ED for evaluation. Patient brought in by EMS for nausea and vomiting. Patient was seen here 2 days ago with abdominal pain and diagnosed with colitis. Was prescribed medications and antibiotics. Patient returned yesterday with persistent pain and vomiting. Patient was worked up and subsequently discharged. Patient is here today because of nausea and vomiting. States pain is improving. Denies any fevers or chills. No other aggravating or relieving factors. Denies any other associated symptoms Allergies: Coded Allergies: No Known Allergies (Unverified , 10/27/16) Patient History Past Medical History: none Past Surgical History: none Pertinent Family History: none Social History: Denies: smoking, alcohol use, drug use Now: No Immunizations: UTD Reviewed Nursing Documentation: PMH: Agreed, PSxH: Agreed Nursing Documentation-PMH Hx Hypertension: Yes Review of Systems All Other Systems: negative except mentioned in HPI Physical Exam Vital Signs Date Time Temp Pulse Resp B/P (MAP) Pulse Ox O2 Delivery O2 Flow Rate FiO2 05/10/17 10:19 97.8 88 16 130/80 98 Room Air 97.9 Sp02 EP Interpretation: reviewed, normal General Appearance: no apparent distress, alert, GCS 15, non-toxic Head: normocephalic, atraumatic Eyes: bilateral eye normal inspection, bilateral eye PERRL ENT: hearing grossly normal, normal pharynx, no angioedema, normal voice Neck: full range of motion, supple/symm/no masses Respiratory: chest non-tender, lungs clear, normal breath sounds, speaking full sentences Cardiovascular #1: regular rate, rhythm, no edema Cardiovascular #2: 2+ carotid (R), 2+ carotid (L), 2+ radial (R), 2+ radial (L) , 2+ dorsalis pedis (R), 2+ dorsalis pedis (L) Gastrointestinal: normal bowel sounds, non tender, soft, non-distended, no guarding, no rebound Rectal: deferred Genitourinary: normal inspection, no CVA tenderness Musculoskeletal: back normal, gait/station normal, normal range of motion, non- tender Neurologic: alert, oriented x3, responsive, motor strength/tone normal, sensory intact, speech normal Psychiatric: judgement/insight normal, memory normal, mood/affect normal, no suicidal/homicidal ideation Reflexes: 3+ bicep (R), 3+ bicep (L), 3+ tricep (R), 3+ tricep (L), 3+ knee (R) , 3+ knee (L) Skin: normal color, no rash, warm/dry, well hydrated Lymphatic: no adenopathy Medical Decision Making Diagnostic Impression: Primary Impression: Colitis Additional Impression: Persistent vomiting ER Course Hospital Course 46-year-old female presents ED complaining of nausea and vomiting differential diagnosis: gastritis, SBO, cholecystits Clinical course Patient placed on stretcher. On quality assurance monitor chassis. I reviewed EMR. Patient was seen here 2 days ago. Seen by myself. had work up including CT. Diagnosis colitis. Given antibiotics and discharged Patient came in yesterday for similar presentation. At workup which showed noticeably improved labs. Given IV antibiotics and subsequently discharged At this point I see no reason to repeat lab work. Exam unremarkable. Abdomen soft. Vital stable. Discussed findings patient. Agreed to provide her with IM Zofran here. GI cocktail. By mouth Pepcid Patient also admits to not filling her prescriptions Upon reassessment, patient states symptoms have improved I feel this is a highly complex case requiring extensive working including EKG/ Rhythm strip, Xray/CT/US, Blood/urine lab work, repeat exams while in ED, and administration of strong opiates/narcotics for pain control, admission to hospital or close patient follow up. Diagnosis - colitis, persistent vomiting Stable and discharged to home. Fill your prescriptions and take as prescribed. Followup with PMD. Return to ED if symptoms recur or worsen Last Vital Signs Date Time Temp Pulse Resp B/P (MAP) Pulse Ox O2 Delivery O2 Flow Rate FiO2 05/10/17 12:05 98.4 84 16 170/100 98 Room Air 98.4 Status: improved Disposition: HOME, SELF-CARE Condition: Stable Referrals: [facility]ERR[facility] (PCP) Patient Instructions: NATALIA Becerra M.D. May 11, 2017 14:08
== END 2017-05-10 12:05 | disposition home or self-care (01) ==
LOC: EDBD 10:14 → EDUNIT# 10:14 → EMR 11:08
DX: K52.9 Noninfective gastroenteritis and colitis, unspecified (principal); I10 Essential (primary) hypertension
CPT/HCPCS: 96372; 99283; J2405

== ENCOUNTER 2017-06-08 18:42 | Emergency (ER) | payer MEDICAID ==
[~2017-06-08] VITALS: Ht 165.1 cm; Wt 56.7 kg
[2017-06-08] MEDS ORDERED: Morphine Sulfate 4mg/ml Inj IVP ONE ×2 (18:45→20:15)
[2017-06-08 19:11] LABS: BASOPHILS % (AUTO) 0.6 % (0.0-2.0); EOSINOPHILS % (AUTO) 0.2 % (0.0-3.0); LYMPHOCYTES % (AUTO) 34.6 % (20.0-45.0); MEAN CORPUSCULAR VOLUME 93 FL (80-99); MONOCYTES % (AUTO) 5.7 % (1.0-10.0); PLATELET COUNT 208 K/UL (150-450); RED BLOOD COUNT 4.39 M/UL (4.20-5.40); RED CELL DISTRIBUTION WIDTH 14.5 % (11.6-14.8); WHITE BLOOD COUNT 6.1 K/UL (4.8-10.8)
[2017-06-08 19:24] LABS: APPEARANCE,URINE SLIGHTLY CLOUDY; BILIRUBIN, URINE NEGATIVE (NEGATIVE); COLOR,URINE AMBER; GLUCOSE, URINE (UA) NEGATIVE (NEGATIVE); KETONES,URINE 2+ (NEGATIVE); LEUKOCYTE ESTERASE ,URINE NEGATIVE (NEGATIVE); NITRITE,URINE NEGATIVE (NEGATIVE); PH,URINE 5 (4.5-8.0); PROTEIN,URINE 2+ (NEGATIVE); UROBILINOGEN,URINE NORMAL MG/DL (0.0-1.0)
[2017-06-08 19:25] LABS: ANION GAP 20 mmol/L (5-15); BLOOD UREA NITROGEN 14 mg/dL (7-18); CALCIUM 7.9 MG/DL (8.5-10.1); CARBON DIOXIDE 21 MMOL/L (21-32); CHLORIDE 103 MMOL/L (98-107); CREATININE 0.7 MG/DL (0.55-1.30); POTASSIUM 3.5 MMOL/L (3.5-5.1); SODIUM 144 MMOL/L (136-145)
[2017-06-08 19:30] LABS: ALANINE AMINOTRANSFERASE 19 U/L (12-78); ALBUMIN 3.9 G/DL (3.4-5.0); ALBUMIN/GLOBULIN RATIO 1.1 (1.0-2.7); ALKALINE PHOSPHATASE 82 U/L (46-116); ASPARTATE AMINO TRANSFERASE 25 U/L (15-37); BILIRUBIN,TOTAL 0.3 MG/DL (0.2-1.0)
[2017-06-08 20:10] VITALS: BP 117/72
[2017-06-08] MEDS ORDERED: LORazepam Inj 2mg/ml 1ml IV ONE (20:15)
--- NOTE | 2017-06-08 20:23 | Emergency Room Report ---
History of Present Illness General Chief Complaint: Abdominal Pain Source: Patient Present Illness HPI Patient persist with complaints of diffuse abdominal pain Reports that she feels like it's or colitis Patient reports vomiting over the past several days denies any constipation denies any obvious diarrhea Denies any blood in the stool Upon initial arrival patient is somewhat histrionic Difficult to obtain full history from the patient denies any flank pain She reports that from her last visit last month she had improved however again the symptoms have exacerbated Describes the pain as 8 out of 10 and sharp Allergies: Coded Allergies: No Known Allergies (Unverified , 10/27/16) Patient History Past Medical History: see triage record Pertinent Family History: none Last Menstrual Period: 06/01/17 Reviewed Nursing Documentation: PMH: Agreed; PSxH: Agreed Nursing Documentation-PMH Hx Hypertension: Yes Review of Systems All Other Systems: negative except mentioned in HPI Physical Exam Vital Signs Date Time Temp Pulse Resp B/P (MAP) Pulse Ox O2 Delivery O2 Flow Rate FiO2 06/08/17 18:35 99.0 68 18 132/87 99 Room Air 99.0 Sp02 EP Interpretation: reviewed, normal General Appearance: mild distress - in acute pain Head: normocephalic, atraumatic Eyes: bilateral eye PERRL, bilateral eye EOMI ENT: hearing grossly normal, normal pharynx, TMs + canals normal, uvula midline Neck: full range of motion, supple, no meningismus, no bony tend Respiratory: lungs clear, normal breath sounds, no rhonchi, no respiratory distress, no retraction, no accessory muscle use Cardiovascular #1: normal peripheral pulses, regular rate, rhythm, no edema, no gallop, no JVD, no murmur Gastrointestinal: normal bowel sounds, soft, no mass, no organomegaly, non- distended, no hernia, no pulsatile mass, no rebound, other - Difficult abdominal exam patient is essentially uncomfortable out of proportion to any exam I cannot localize the discomfort patient does point to the mid abdominal and epigastric along with periumbilical region Genitourinary: no CVA tenderness Musculoskeletal: normal inspection Neurologic: oriented x3, responsive, double end tenon operator III-XII nml as tested, motor strength/ tone normal, sensory intact Psychiatric: mood/affect normal Skin: normal color, no rash, warm/dry, palpation normal Lymphatic: normal inspection, no adenopathy Medical Decision Making Diagnostic Impression: Primary Impression: Intractable abdominal pain ER Course With the history exam and presentation, multiple differentials considered, including but not limited to appendicitis, gastritis, cholecystitis, diverticulitis Patient's baseline blood work are appropriate Patient has had previous low CO2 and acidotic findings Therefore these were checked she was provided with further hydration At this time continues to be uncomfortable Therefore requires further inpatient care and evaluation Patient's abdomen itself remained soft CT imaging from last month was provided and the report however one was not repeated given the clinical exam Labs Test 06/08/17 18:38 06/08/17 18:58 White Blood Count 6.1 K/UL (4.8-10.8) Red Blood Count 4.39 M/UL (4.20-5.40) Hemoglobin 14.0 G/DL (12.0-16.0) Hematocrit 41.0 % (37.0-47.0) Mean Corpuscular Volume 93 FL (80-99) Mean Corpuscular Hemoglobin 32.0 PG (27.0-31.0) Mean Corpuscular Hemoglobin Concent 34.2 G/DL (32.0-36.0) Red Cell Distribution Width 14.5 % (11.6-14.8) Platelet Count 208 K/UL (150-450) Mean Platelet Volume 7.2 FL (6.5-10.1) Neutrophils (%) (Auto) 59.0 % (45.0-75.0) Lymphocytes (%) (Auto) 34.6 % (20.0-45.0) Monocytes (%) (Auto) 5.7 % (1.0-10.0) Eosinophils (%) (Auto) 0.2 % (0.0-3.0) Basophils (%) (Auto) 0.6 % (0.0-2.0) Sodium Level 144 MMOL/L (136-145) Potassium Level 3.5 MMOL/L (3.5-5.1) Chloride Level 103 MMOL/L (98-107) Carbon Dioxide Level 21 MMOL/L (21-32) Anion Gap 20 mmol/L (5-15) Blood Urea Nitrogen 14 mg/dL (7-18) Creatinine 0.7 MG/DL (0.55-1.30) Estimat Glomerular Filtration Rate > 60 mL/min (>60) Glucose Level 88 MG/DL (74-106) Calcium Level 7.9 MG/DL (8.5-10.1) Total Bilirubin 0.3 MG/DL (0.2-1.0) Aspartate Amino Transf (AST/SGOT) 25 U/L (15-37) Alanine Aminotransferase (ALT/SGPT) 19 U/L (12-78) Alkaline Phosphatase 82 U/L (46-116) Total Protein 7.4 G/DL (6.4-8.2) Albumin 3.9 G/DL (3.4-5.0) Globulin 3.5 g/dL Albumin/Globulin Ratio 1.1 (1.0-2.7) Lipase 110 U/L (73-393) Urine Color Jennifer Urine Appearance Slightly cloudy Urine pH 5 (4.5-8.0) Urine Specific [place] 1.025 (1.005-1.035) Urine Protein 2+ (NEGATIVE) Urine Glucose (UA) Negative (NEGATIVE) Urine Ketones 2+ (NEGATIVE) Urine Occult Blood 1+ (NEGATIVE) Urine Nitrite Negative (NEGATIVE) Urine Bilirubin Negative (NEGATIVE) Urine Ictotest Negative Urine Urobilinogen Normal MG/DL (0.0-1.0) Urine Leukocyte Esterase Negative (NEGATIVE) Urine RBC 5-10 /HPF (0 - 2) Urine WBC 2-4 /HPF (0 - 2) Urine Squamous Epithelial Cells Moderate /LPF (NONE/OCC) Urine Bacteria Moderate /HPF (NONE) CT/MRI/US Diagnostic Results CT/MRI/US Diagnostic Results : Impression 05/08/2017: CT abdomen pelvis:Impression: Wall thickening of the cecum and ascending colon, concerning for colitis. Fatty liver Distal esophageal wall thickening, could indicate esophagitis. Correlate with clinical findings Subcentimeter left renal lesion, too small to characterize, most likely benign simple cyst Probable nonobstructive left renal calculus again demonstrated Incidental findings as noted, including small fat-containing umbilical hernia, possible hemorrhagic follicle left ovary, very mild scoliosis. This agrees with the preliminary interpretation provided overnight by [facility]. Last Vital Signs Date Time Temp Pulse Resp B/P (MAP) Pulse Ox O2 Delivery O2 Flow Rate FiO2 06/08/17 20:10 98.1 77 15 117/72 98 Room Air 98.1 Status: improved Disposition: ADMITTED INPATIENT Condition: Serious Referrals: [facility]ERRING (PCP) Mojgan Sinha DO Jun 08, 2017 20:23
[2017-06-08] MEDS ORDERED: VISTARIL50 MG ORAL (21:53)
[2017-06-08] MEDS ORDERED: CYMBALTA60 MG ORAL (21:53)
[2017-06-08 21:59] VITALS: BP 100/61
[2017-06-08 22:00] VITALS: BP 117/72
== END 2017-06-08 22:00 | disposition other institution (70) ==
LOC: EDBD 18:42 → EMR 18:58
DX: R10.9 Unspecified abdominal pain (principal); I10 Essential (primary) hypertension
CPT/HCPCS: 36415; 80053; 81003; 83690; 85025; 87086; 99285; J1956; J2270; J2405

== ENCOUNTER 2017-06-16 22:21 | Emergency (ER) | payer MEDICAID ==
[~2017-06-16] VITALS: Ht 165.1 cm; Wt 63.5 kg
[~2017-06-16 22:21] MED LIST changes: +CYMBALTA60 MG ORAL; +VISTARIL50 MG ORAL
[2017-06-16 22:34] VITALS: BP 149/100
[2017-06-16] MEDS ORDERED: Sodium Chloride 500ML 500 ML IV ONE (22:50)
[2017-06-16 23:19] LABS: HEMATOCRIT 39.1 % (37.0-47.0); HEMOGLOBIN 12.7 G/DL (12.0-16.0); MEAN CORPUSCULAR VOLUME 95 FL (80-99); PLATELET COUNT 244 K/UL (150-450); RED BLOOD COUNT 4.11 M/UL (4.20-5.40); RED CELL DISTRIBUTION WIDTH 14.9 % (11.6-14.8); WHITE BLOOD COUNT 4.7 K/UL (4.8-10.8)
--- NOTE | 2017-06-16 23:29 | Emergency Room Report ---
History of Present Illness General Chief Complaint: Abdominal Pain Source: Patient, Medical Record, EMS Present Illness HPI Is a 46-year-old female who is an alcoholic. She presents with chief complaint of right lower quadrant abdominal pain. This is an ongoing problem. She was seen here a few times for this. Last time was June 08 diagnosed with colitis. She was just released from [facility] yesterday for the same thing per EMS. Did not fill her antibiotics. She was drinking tonight. Complaining of right lower quadrant pain. Pain is sharp. No nausea no vomiting. No fever or chills. Pain is similar to previous pain. Pain is 8 out of 10. Allergies: Coded Allergies: No Known Allergies (Unverified , 10/27/16) Patient History Past Medical History: see triage record, old chart reviewed Past Surgical History: other Pertinent Family History: none Social History: Denies: smoking Now: No Immunizations: other Reviewed Nursing Documentation: PMH: Agreed; PSxH: Agreed Nursing Documentation-PMH Past Medical History: No History, Except For Hx Hypertension: Yes Hx Gastrointestinal Problems: Yes - Colitis, Cholecystitis Hx Neurological Problems: No - Chronic Alcoholic Review of Systems Eye: Denies: eye pain, blurred vision ENT: Denies: ear pain, nose congestion, throat swelling Respiratory: Denies: cough, shortness of breath Cardiovascular: Denies: chest pain, palpitations Gastrointestinal: Reports: abdominal pain; Denies: diarrhea, nausea, vomiting Musculoskeletal: Denies: back pain, joint pain Skin: Denies: rash Neurological: Denies: headache, numbness Endocrine: Denies: increased thirst, increased urine Hematologic/Lymphatic: Denies: easy bruising All Other Systems: negative except mentioned in HPI Physical Exam Vital Signs Date Time Temp Pulse Resp B/P (MAP) Pulse Ox O2 Delivery O2 Flow Rate FiO2 06/16/17 22:28 97.5 99 16 138/89 96 Room Air 97.5 vitals normal Sp02 EP Interpretation: reviewed, normal General Appearance: well appearing, no apparent distress, alert Head: normocephalic, atraumatic Eyes: bilateral eye PERRL, bilateral eye EOMI ENT: hearing grossly normal, normal pharynx Neck: full range of motion, supple, no meningismus Respiratory: chest non-tender, lungs clear, normal breath sounds Cardiovascular #1: regular rate, rhythm, no murmur Gastrointestinal: normal bowel sounds, no mass, no organomegaly, no bruit, non- distended, tenderness - right lower quadrant Musculoskeletal: back normal, gait/station normal, normal range of motion Psychiatric: mood/affect normal Skin: warm/dry Medical Decision Making Diagnostic Impression: Primary Impression: Alcohol intoxication Qualified Codes: F10.920 - Alcohol use, unspecified with intoxication, uncomplicated Additional Impression: Abdominal pain Qualified Codes: R10.31 - Right lower quadrant pain ER Course Patient presents with abdominal pain and alcohol intoxication. This is a chronic problem. CT scan unremarkable. Pain better now. We'll discharge home. Lab Results Impression labs unremarkable CT/MRI/US Diagnostic Results CT/MRI/US Diagnostic Results : Imaging Test Ordered: CT abdomen and pain Impression Read by radiologist. Appendix is mildly prominent at 7 mm but no evidence of inflammatory changes. Last Vital Signs Date Time Temp Pulse Resp B/P (MAP) Pulse Ox O2 Delivery O2 Flow Rate FiO2 06/16/17 22:34 98.2 82 16 149/100 Room Air 98.2 06/16/17 22:28 96 Status: improved Disposition: HOME, SELF-CARE Condition: Stable Referrals: [facility],REFERR[facility] (PCP) Patient Instructions: Abdominal Pain, Adult Additional Instructions: Stop drinking alcohol. Follow-up in rehabilitation. Follow-up your doctor in 2 -3 days. Return if worse. FRANK YO M.D. Jun 16, 2017 23:29
[2017-06-16 23:32] LABS: ANION GAP 13 mmol/L (5-15); BLOOD UREA NITROGEN 7 mg/dL (7-18); CALCIUM 8.3 MG/DL (8.5-10.1); CARBON DIOXIDE 27 MMOL/L (21-32); CHLORIDE 102 MMOL/L (98-107); CREATININE 0.5 MG/DL (0.55-1.30); POTASSIUM 3.8 MMOL/L (3.5-5.1); SODIUM 142 MMOL/L (136-145)
[2017-06-16 23:38] LABS: ALANINE AMINOTRANSFERASE 26 U/L (12-78); ALBUMIN 3.8 G/DL (3.4-5.0); ALBUMIN/GLOBULIN RATIO 1.1 (1.0-2.7); ALKALINE PHOSPHATASE 77 U/L (46-116); ASPARTATE AMINO TRANSFERASE 35 U/L (15-37); BILIRUBIN,TOTAL 0.3 MG/DL (0.2-1.0)
[2017-06-16 23:43] LABS: APPEARANCE,URINE CLEAR; BILIRUBIN, URINE NEGATIVE (NEGATIVE); COLOR,URINE PALE YELLOW; GLUCOSE, URINE (UA) NEGATIVE (NEGATIVE); KETONES,URINE NEGATIVE (NEGATIVE); LEUKOCYTE ESTERASE ,URINE NEGATIVE (NEGATIVE); NITRITE,URINE NEGATIVE (NEGATIVE); PH,URINE 6.5 (4.5-8.0); PROTEIN,URINE NEGATIVE (NEGATIVE); UROBILINOGEN,URINE NORMAL MG/DL (0.0-1.0)
[2017-06-17 01:12] VITALS: BP 138/86
[2017-06-17 01:59] VITALS: BP 124/76
--- NOTE | 2017-06-17 08:37 | Diagnostic Imaging Report ---
Indication: Abdominal pain Technique: Continuous helical transaxial imaging of the abdomen and pelvis was obtained from the lung bases to the pubic symphysis. No intravenous contrast was administered. Coronal 2-D reformats were also obtained. Automatic Exposure Control was utilized. Total Dose length Product (DLP): 552.[address] Dose Index Volume (CTDIvol): 11.09 mGy Comparison: 04/28/2017 Findings: There is a punctate calcification in the left kidney consistent with a nonobstructive stone. Gallbladder is unremarkable. Lung bases are clear. Solid organs are not evaluated on this study done without contrast material. No hydronephrosis seen. Small umbilical hernia containing fat demonstrated. The appendix is normal. Uterus noted. Urinary bladder is unremarkable. There is a small right inguinal hernia containing fat. Degenerative disc disease at L4-5 noted. Hypertrophied facets within the lumbar spine noted. IMPRESSION: Nonobstructive nephrolithiasis left kidney. Other incidental findings as above including a normal appendix. [facility] has communicated the preliminary results to the Emergency Department. Their findings are largely concordant with this report. The CT scanner at [facility] is accredited by the [employer] and the scans are performed using dose optimization techniques as appropriate to a performed exam including Automatic Exposure control.
== END 2017-06-17 02:02 | disposition home or self-care (01) ==
LOC: EDBD 22:21 → EDUNIT# 22:21 → EMR 22:36
DX: F10.920 Alcohol use, unspecified with intoxication, uncomplicated (principal); R10.31 Right lower quadrant pain; I10 Essential (primary) hypertension; N20.0 Calculus of kidney; K42.9 Umbilical hernia without obstruction or gangrene; M51.36 Other intervertebral disc degeneration, lumbar region
CPT/HCPCS: 36415; 74176; 80053; 80307; 81003; 81025; 83690; 85025; 96361; 96374; 99284; J2405

== ENCOUNTER 2017-06-19 16:27 | Emergency (ER) | payer MEDICAID ==
[~2017-06-19] VITALS: Ht 167.6 cm; Wt 59.0 kg
--- NOTE | 2017-06-19 17:18 | Emergency Room Report ---
History of Present Illness General Chief Complaint: Vomiting Source: Patient Present Illness HPI 46-year-old female presents to the emergency department complaining of recurrent vomiting. Patient reports she was seen at [facility] ER yesterday for the same thing and was discharged with prescription for Zofran. Patient reports Zofran is not working. Patient denies pain at this time. Patient states she's having a difficult time keeping food or liquids down. She reports a history of recent colitis and gastritis. Patient also admits to marijuana use which she used recently. Patient denies recent travel or ill contacts denies fevers, chills, constipation, diarrhea, blood in the vomit or stool, melena or abdominal tenderness. Allergies: Coded Allergies: No Known Allergies (Unverified , 10/27/16) Patient History Past Medical History: see triage record Past Surgical History: none Pertinent Family History: none Last Menstrual Period: 05/28/17 Now: No Reviewed Nursing Documentation: PMH: Agreed; PSxH: Agreed Nursing Documentation-PMH Hx Hypertension: Yes Hx Neurological Problems: No - Chronic Alcoholic Review of Systems All Other Systems: negative except mentioned in HPI Physical Exam Vital Signs Date Time Temp Pulse Resp B/P (MAP) Pulse Ox O2 Delivery O2 Flow Rate FiO2 06/19/17 16:17 98.4 92 17 180/120 97 Room Air 98.4 Sp02 EP Interpretation: reviewed, normal General Appearance: no apparent distress, alert, GCS 15, non-toxic Head: normocephalic, atraumatic Eyes: bilateral eye normal inspection, bilateral eye PERRL ENT: hearing grossly normal, normal voice, moist mucus membranes Neck: full range of motion Respiratory: lungs clear, normal breath sounds, speaking full sentences Cardiovascular #1: regular rate, rhythm Gastrointestinal: normal bowel sounds, non tender, soft, non-distended, no guarding Musculoskeletal: back normal, gait/station normal, normal range of motion, non- tender Neurologic: alert, oriented x3, responsive, motor strength/tone normal, sensory intact, normal gait, speech normal, grossly normal Psychiatric: judgement/insight normal Skin: normal color, no rash, warm/dry, well hydrated Medical Decision Making PA Attestation Dr. white is my supervising Physician whom patient management has been discussed with. Diagnostic Impression: Primary Impression: Nausea and vomiting in adult patient Additional Impression: History of marijuana use ER Course 46-year-old female presents to the emergency department complaining of recurrent vomiting. Patient reports she was seen at [facility] ER yesterday for the same thing and was discharged with prescription for Zofran. Patient reports Zofran is not working. Patient denies pain at this time. Patient states she's having a difficult time keeping food or liquids down. She reports a history of recent colitis and gastritis. Patient also admits to marijuana use which she used recently. Patient denies recent travel or ill contacts denies fevers, chills, constipation, diarrhea, blood in the vomit or stool, melena or abdominal tenderness. Ddx considered but are not limited to GE, colitis, acute appy, SBO, Cyclical Vomiting secondary to THC, * Vital signs: pt. is afebrile, H&PE are most consistent with gastritis possibly from THC USE. No evidence to suggest acute abdomen on physical exam. ORDERS: I reviewed this patient's chart from previous visit it appears she was here 3 days ago and was complaining of similar symptoms for which led work and CT of the abdomen and pelvis were performed and ultimately unremarkable. -. Do not find it necessary at this point to repeat exams that were normal 3 days ago. -Urine Hcg: Negative -UDS: positive for THC ED INTERVENTIONS: -Reglan PO Patient is able to tolerate oral fluids in addition to the medication. He is stating that she feels better and is requesting to go home. DISCHARGE: At this time pt. is stable for d/c to home. Will provide printed patient care instructions, and any necessary prescriptions. Care plan and follow up instructions have been discussed with the patient prior to discharge. Labs Test 06/19/17 16:40 Urine HCG, Qualitative Negative (NEGATIVE) Urine Opiates Screen Negative (NEGATIVE) Urine Barbiturates Screen Negative (NEGATIVE) Phencyclidine (PCP) Screen Negative (NEGATIVE) Urine Amphetamines Screen Negative (NEGATIVE) Urine Benzodiazepines Screen Negative (NEGATIVE) Urine Cocaine Screen Negative (NEGATIVE) Urine Marijuana (THC) Screen Positive (NEGATIVE) Last Vital Signs Date Time Temp Pulse Resp B/P (MAP) Pulse Ox O2 Delivery O2 Flow Rate FiO2 06/19/17 16:17 98.4 92 17 180/120 97 Room Air 98.4 Disposition: HOME, SELF-CARE Condition: Stable Scripts Metoclopramide Hcl* (REGLAN*) 10 Mg Tablet 10 MG ORAL THREE TIMES A DAY PRN for Nausea & Vomiting, #9 TAB Prov: Beatriz Simon 06/19/17 Patient Instructions: Nausea and Vomiting, Adult Additional Instructions: Take medications as prescribed. Drink plenty of water and stay hydrated. Follow up with your PMD in 3-5 days. -d/w marijuana use to see if this is causing your symptoms. Return sooner to the ED with worsening or new symptoms. Beatriz Simon Jun 19, 2017 17:18
[2017-06-19] MEDS ORDERED: REGLAN10 MG ORAL (17:20)
[2017-06-19 17:28] VITALS: BP 175/114
== END 2017-06-19 17:40 | disposition home or self-care (01) ==
LOC: EDBD 16:27 → EMR 17:05
DX: R11.2 Nausea with vomiting, unspecified (principal); F12.11 Cannabis abuse, in remission; Z87.19 Personal history of other diseases of the digestive system; I10 Essential (primary) hypertension
CPT/HCPCS: 80307; 81025; 82962; 99283

== ENCOUNTER 2017-06-20 00:19 | Inpatient (IN) | payer MEDICAID ==
[2017-06-20] VITALS (7 sets, daily range): BP systolic 129–156; BP diastolic 72–100
[~2017-06-20] VITALS: Ht 167.6 cm; Wt 57.2 kg
[~2017-06-20 00:19] MED LIST changes: +REGLAN10 MG ORAL
--- NOTE | 2017-06-20 00:43 | Emergency Room Report ---
History of Present Illness General Chief Complaint: Nausea, Vomiting, and Diarrhea Source: Patient Present Illness HPI 46-year-old female, history of alcohol abuse, marijuana abuse, p/w nausea and vomiting for 2 days Has been to multiple emergency rooms this week, was also seen here at [facility] and was discharged after symptom control Multiple episodes of nonbilious nonbloody vomiting, no diarrhea no black or bloody stools Mild epigastric abdominal pain Allergies: Coded Allergies: No Known Allergies (Unverified , 10/27/16) Patient History Past Medical History: see triage record Past Surgical History: none Pertinent Family History: none Reviewed Nursing Documentation: PMH: Agreed; PSxH: Agreed Nursing Documentation-PMH Past Medical History: No History, Except For Hx Hypertension: Yes Hx Gastrointestinal Problems: Yes - Colitis, Cholecystitis Hx Neurological Problems: No - Chronic Alcoholic Review of Systems All Other Systems: negative except mentioned in HPI Physical Exam Vital Signs Date Time Temp Pulse Resp B/P (MAP) Pulse Ox O2 Delivery O2 Flow Rate FiO2 06/20/17 00:10 98.7 122 20 166/110 97 Room Air 98.8 Sp02 EP Interpretation: reviewed, normal General Appearance: alert, GCS 15, non-toxic, moderate distress Head: normocephalic, atraumatic Eyes: bilateral eye normal inspection, bilateral eye PERRL, bilateral eye EOMI ENT: normal ENT inspection, normal pharynx, normal voice, moist mucus membranes Neck: normal inspection, full range of motion, supple Respiratory: normal inspection, lungs clear, normal breath sounds, no respiratory distress, no retraction, no wheezing, speaking full sentences, chest symmetrical Cardiovascular #1: normal inspection, regular rate, rhythm, no edema, normal capillary refill Cardiovascular #2: 2+ radial (R), 2+ radial (L) Gastrointestinal: normal inspection, non tender, soft, non-distended, no guarding Musculoskeletal: normal inspection, back normal, normal range of motion, non- tender Neurologic: normal inspection, alert, oriented x3, responsive, motor strength/ tone normal, sensory intact, normal gait, speech normal Psychiatric: normal inspection, judgement/insight normal, memory normal Skin: normal inspection, normal color, no rash, warm/dry, well hydrated, normal turgor Medical Decision Making Diagnostic Impression: Primary Impression: Nausea and vomiting in adult patient ER Course 46-year-old female with nausea vomiting, history of alcohol abuse Differential Diagnosis: Alcoholic Gastritis, cyclic vomiting syndrome gastroenteritis, UTI/pyelo Plan: Basic labs, ua Zofran and fluids ER course: Patient has remained stable during ED stay. however continues to have n/v bicarb low, hyponatremia Disposition: Patient is to be admitted to [facility] hospitalist Dr Sierra/WILLIAMS Mancia Strict return precautions discussed with patient such as fever, chills, worsening/severe abdominal pain, nausea, vomiting, black or bloody stools, which may indicate severe illness. Patient verbalizes understanding and agrees with plan. Please note that this Emergency Department Report was dictated using [email or web address] technology software, occasionally this can lead to erroneous entry secondary to interpretation by the dictation equipment Laboratory Tests Test 06/20/17 00:40 06/20/17 01:24 White Blood Count 3.5 K/UL (4.8-10.8) L Red Blood Count 5.46 M/UL (4.20-5.40) H Hemoglobin 17.1 G/DL (12.0-16.0) H Hematocrit 51.6 % (37.0-47.0) H Mean Corpuscular Volume 94 FL (80-99) Mean Corpuscular Hemoglobin 31.2 PG (27.0-31.0) H Mean Corpuscular Hemoglobin Concent 33.1 G/DL (32.0-36.0) Red Cell Distribution Width 14.0 % (11.6-14.8) Platelet Count 182 K/UL (150-450) Mean Platelet Volume 7.1 FL (6.5-10.1) Neutrophils (%) (Auto) 67.1 % (45.0-75.0) Lymphocytes (%) (Auto) 24.9 % (20.0-45.0) Monocytes (%) (Auto) 7.2 % (1.0-10.0) Eosinophils (%) (Auto) 0.0 % (0.0-3.0) Basophils (%) (Auto) 0.9 % (0.0-2.0) Urine Color Pale yellow Urine Appearance Clear Urine pH 5 (4.5-8.0) Urine Specific [place] 1.025 (1.005-1.035) Urine Protein 2+ (NEGATIVE) H Urine Glucose (UA) Negative (NEGATIVE) Urine Ketones 4+ (NEGATIVE) H Urine Occult Blood 1+ (NEGATIVE) H Urine Nitrite Negative (NEGATIVE) Urine Bilirubin Negative (NEGATIVE) Urine Urobilinogen Normal MG/DL (0.0-1.0) Urine Leukocyte Esterase Negative (NEGATIVE) Urine RBC 0-2 /HPF (0 - 2) Urine WBC 0 /HPF (0 - 2) Urine Squamous Epithelial Cells Moderate /LPF (NONE/OCC) H Urine Bacteria None /HPF (NONE) Urine HCG, Qualitative Negative (NEGATIVE) Sodium Level 129 MMOL/L (136-145) L Potassium Level 4.2 MMOL/L (3.5-5.1) Chloride Level 88 MMOL/L (98-107) L Carbon Dioxide Level 15 MMOL/L (21-32) L Anion Gap 26 mmol/L (5-15) H Blood Urea Nitrogen 4 mg/dL (7-18) L Creatinine 0.7 MG/DL (0.55-1.30) Estimate Glomerular Filtration Rate > 60 mL/min (>60) Glucose Level 125 MG/DL (74-106) H Calcium Level 10.6 MG/DL (8.5-10.1) H Total Bilirubin 1.0 MG/DL (0.2-1.0) Aspartate Amino Transferase (AST) 48 U/L (15-37) H Alanine Aminotransferase (ALT) 31 U/L (12-78) Alkaline Phosphatase 101 U/L (46-116) Total Protein 9.5 G/DL (6.4-8.2) H Albumin 5.2 G/DL (3.4-5.0) H Globulin 4.3 g/dL Albumin/Globulin Ratio 1.2 (1.0-2.7) Lipase 174 U/L (73-393) Urine Opiates Screen Negative (NEGATIVE) Urine Barbiturates Screen Negative (NEGATIVE) Phencyclidine (PCP) Screen Negative (NEGATIVE) Urine Amphetamines Screen Negative (NEGATIVE) Urine Benzodiazepines Screen Negative (NEGATIVE) Urine Cocaine Screen Negative (NEGATIVE) Urine Marijuana (THC) Screen Positive (NEGATIVE) H Serum Alcohol < 3 mg/dL Arterial Blood pH 7.392 (7.350-7.450) Arterial Blood Partial Pressure CO2 20.2 mmHg (35.0-45.0) *L Arterial Blood Partial Pressure O2 101.9 mmHg (75.0-100.0) H Arterial Blood HCO3 12.0 mmol/L (22.0-26.0) L Arterial Blood Oxygen Saturation 97.0 % (92.0-98.0) Arterial Blood Base Excess -10.7 Carson Test Positive Last Vital Signs Date Time Temp Pulse Resp B/P (MAP) Pulse Ox O2 Delivery O2 Flow Rate FiO2 06/20/17 00:10 98.7 122 20 166/110 97 Room Air 98.8 Disposition: ADMITTED INPATIENT Condition: Serious Valdez Ramirez M.D. Jun 20, 2017 00:43
[2017-06-20 01:03] LABS: BASOPHILS % (AUTO) 0.9 % (0.0-2.0); HEMATOCRIT 51.6 % (37.0-47.0); HEMOGLOBIN 17.1 G/DL (12.0-16.0); LYMPHOCYTES % (AUTO) 24.9 % (20.0-45.0); MEAN CORPUSCULAR VOLUME 94 FL (80-99); MONOCYTES % (AUTO) 7.2 % (1.0-10.0); NEUTROPHILS % (AUTO) 67.1 % (45.0-75.0); PLATELET COUNT 182 K/UL (150-450); RED BLOOD COUNT 5.46 M/UL (4.20-5.40); WHITE BLOOD COUNT 3.5 K/UL (4.8-10.8)
[2017-06-20 01:05] LABS: APPEARANCE,URINE CLEAR; BILIRUBIN, URINE NEGATIVE (NEGATIVE); COLOR,URINE PALE YELLOW; GLUCOSE, URINE (UA) NEGATIVE (NEGATIVE); KETONES,URINE 4+ (NEGATIVE); LEUKOCYTE ESTERASE ,URINE NEGATIVE (NEGATIVE); NITRITE,URINE NEGATIVE (NEGATIVE); PH,URINE 5 (4.5-8.0); PROTEIN,URINE 2+ (NEGATIVE); UROBILINOGEN,URINE NORMAL MG/DL (0.0-1.0)
[2017-06-20 01:15] LABS: ANION GAP 26 mmol/L (5-15); BLOOD UREA NITROGEN 4 mg/dL (7-18); CALCIUM 10.6 MG/DL (8.5-10.1); CARBON DIOXIDE 15 MMOL/L (21-32); CHLORIDE 88 MMOL/L (98-107); CREATININE 0.7 MG/DL (0.55-1.30); POTASSIUM 4.2 MMOL/L (3.5-5.1); SODIUM 129 MMOL/L (136-145)
[2017-06-20 01:20] LABS: ALANINE AMINOTRANSFERASE 31 U/L (12-78); ALBUMIN 5.2 G/DL (3.4-5.0); ALBUMIN/GLOBULIN RATIO 1.2 (1.0-2.7); ALKALINE PHOSPHATASE 101 U/L (46-116); ASPARTATE AMINO TRANSFERASE 48 U/L (15-37)
[2017-06-20] MEDS ORDERED: Metoclopramide 10mg/2ml Inj IVP ONE (01:30)
[2017-06-20] MEDS ORDERED: D5 1/2NS 1000ml IV ONE (01:30)
[2017-06-20] MEDS ORDERED: Thiamine HCl 100 MG in D5W 55 ML IVPB ONE (01:45)
[2017-06-20] MEDS ORDERED: LORazepam Inj 2mg/ml 1ml IV ONE (02:45)
--- NOTE | 2017-06-20 10:12 | GI Initial Consult Note ---
History of Present Illness General Date patient seen: Jun 20, 2017 Time patient seen: 10:06 Reason for Hospitalization: Nausea, Vomiting, and Diarrhea Referring physician: CLAUDIA HILARIO Reason for Consultation: CYCLIC VOMITING Present Illness HPI 46-year-old female, history of alcohol abuse, marijuana abuse, p/w nausea and vomiting for 2 days Has been to multiple emergency rooms this week, was also seen here at [facility] and was discharged after symptom control. Multiple episodes of nonbilious nonbloody vomiting, no diarrhea no black or bloody stools. Mild epigastric abdominal pain. GI consulted for cyclic vomiting syndrome. Pt seen, awake A&Ox4 NAD with no active s/sx of N/V/D. States she feels alot better today. No reports of vomiting. Stated she had 1/5 bottle of vodka the other day prior to her episodes. States she's been an alcoholic since the age of 16. Daily marijuana user. History of depression. Presents today with hyponatremia, elevated alkaline phosphatase and low WBC. No history of endoscopy/colonoscopy. Home Meds Active Scripts Metoclopramide Hcl* (REGLAN*) 10 Mg Tablet, 10 MG ORAL THREE TIMES A DAY PRN for Nausea & Vomiting, #9 TAB Prov:Beatriz Simon 06/19/17 Discontinued Reported Medications Duloxetine Hcl* (CYMBALTA*) 60 Mg Capsule.dr, 60 MG ORAL DAILY, CAP 06/08/17 Hydroxyzine Pamoate* (VISTARIL*) 50 Mg Capsule, 50 MG ORAL EVERY 6 HOURS, #20 TAB 0 Refills 06/08/17 No Known Medications* (NKM - No Known Medications*) ., 0 ., 0 Refills 05/08/17 No Known Medications* (NKM - No Known Medications*) ., 0 ., 0 Refills 10/27/16 Discontinued Scripts Ranitidine Hcl* (ZANTAC*) 150 Mg Tablet, 150 MG ORAL TWICE A DAY, #30 TAB Prov:Damien Lowry MD 05/08/17 Ondansetron Odt* (ZOFRAN ODT*) 4 Mg Tab.rapdis, 4 MG ORAL Q6H PRN for Nausea & Vomiting, #30 TAB 0 Refills Prov:Damien Lowry MD 2/28/18 Acetaminophen With Codeine (T#3) (TYLENOL #3 TAB*) Y Tab, 1 TAB ORAL Q8H PRN for For Pain, #20 TAB Prov:Damien Lowry MD 05/08/17 Ciprofloxacin Hcl* (CIPROFLOXACIN HCL*) 500 Mg Tablet, 500 MG ORAL Q12H, #14 TAB 0 Refills Prov:Damien Lowry MD 05/08/17 Med list reviewed/reconciled: Yes Allergies: Coded Allergies: No Known Allergies (Unverified , 10/27/16) Patient History History Provided By: Patient, Medical Record PMH Narrative Past Medical History: see triage record Past Surgical History: none Pertinent Family History: none Reviewed Nursing Documentation: PMH: Agreed; PSxH: Agreed Nursing Documentation-PMH Past Medical History: No History, Except For Hx Hypertension: Yes Hx Gastrointestinal Problems: Yes - Colitis, Cholecystitis Hx Neurological Problems: No - Chronic Alcoholic Social History: Reports: alcohol use, drug use Review of Systems All Other Systems: negative except mentioned in HPI Physical Exam Vital Signs Date Time Temp Pulse Resp B/P (MAP) Pulse Ox O2 Delivery O2 Flow Rate FiO2 06/20/17 00:10 98.7 122 20 166/110 97 Room Air 98.8 Sp02 EP Interpretation: reviewed, normal Labs Laboratory Tests Test 06/20/17 00:40 06/20/17 01:24 White Blood Count 3.5 K/UL (4.8-10.8) L Red Blood Count 5.46 M/UL (4.20-5.40) H Hemoglobin 17.1 G/DL (12.0-16.0) H Hematocrit 51.6 % (37.0-47.0) H Mean Corpuscular Volume 94 FL (80-99) Mean Corpuscular Hemoglobin 31.2 PG (27.0-31.0) H Mean Corpuscular Hemoglobin Concent 33.1 G/DL (32.0-36.0) Red Cell Distribution Width 14.0 % (11.6-14.8) Platelet Count 182 K/UL (150-450) Mean Platelet Volume 7.1 FL (6.5-10.1) Neutrophils (%) (Auto) 67.1 % (45.0-75.0) Lymphocytes (%) (Auto) 24.9 % (20.0-45.0) Monocytes (%) (Auto) 7.2 % (1.0-10.0) Eosinophils (%) (Auto) 0.0 % (0.0-3.0) Basophils (%) (Auto) 0.9 % (0.0-2.0) Urine Color Pale yellow Urine Appearance Clear Urine pH 5 (4.5-8.0) Urine Specific [place] 1.025 (1.005-1.035) Urine Protein 2+ (NEGATIVE) H Urine Glucose (UA) Negative (NEGATIVE) Urine Ketones 4+ (NEGATIVE) H Urine Occult Blood 1+ (NEGATIVE) H Urine Nitrite Negative (NEGATIVE) Urine Bilirubin Negative (NEGATIVE) Urine Urobilinogen Normal MG/DL (0.0-1.0) Urine Leukocyte Esterase Negative (NEGATIVE) Urine RBC 0-2 /HPF (0 - 2) Urine WBC 0 /HPF (0 - 2) Urine Squamous Epithelial Cells Moderate /LPF (NONE/OCC) H Urine Bacteria None /HPF (NONE) Urine HCG, Qualitative Negative (NEGATIVE) Sodium Level 129 MMOL/L (136-145) L Potassium Level 4.2 MMOL/L (3.5-5.1) Chloride Level 88 MMOL/L (98-107) L Carbon Dioxide Level 15 MMOL/L (21-32) L Anion Gap 26 mmol/L (5-15) H Blood Urea Nitrogen 4 mg/dL (7-18) L Creatinine 0.7 MG/DL (0.55-1.30) Estimat Glomerular Filtration Rate > 60 mL/min (>60) Glucose Level 125 MG/DL (74-106) H Calcium Level 10.6 MG/DL (8.5-10.1) H Total Bilirubin 1.0 MG/DL (0.2-1.0) Aspartate Amino Transf (AST/SGOT) 48 U/L (15-37) H Alanine Aminotransferase (ALT/SGPT) 31 U/L (12-78) Alkaline Phosphatase 101 U/L (46-116) Total Protein 9.5 G/DL (6.4-8.2) H Albumin 5.2 G/DL (3.4-5.0) H Globulin 4.3 g/dL Albumin/Globulin Ratio 1.2 (1.0-2.7) Lipase 174 U/L (73-393) Urine Opiates Screen Negative (NEGATIVE) Urine Barbiturates Screen Negative (NEGATIVE) Phencyclidine (PCP) Screen Negative (NEGATIVE) Urine Amphetamines Screen Negative (NEGATIVE) Urine Benzodiazepines Screen Negative (NEGATIVE) Urine Cocaine Screen Negative (NEGATIVE) Urine Marijuana (THC) Screen Positive (NEGATIVE) H Serum Alcohol < 3 mg/dL Arterial Blood pH 7.392 (7.350-7.450) Arterial Blood Partial Pressure CO2 20.2 mmHg (35.0-45.0) *L Arterial Blood Partial Pressure O2 101.9 mmHg (75.0-100.0) H Arterial Blood HCO3 12.0 mmol/L (22.0-26.0) L Arterial Blood Oxygen Saturation 97.0 % (92.0-98.0) Arterial Blood Base Excess -10.7 Carson Test Positive General Appearance: well appearing, no apparent distress, alert Head: normocephalic EENT: PERRL/EOMI, normal ENT inspection Neck: supple Respiratory: normal breath sounds, no respiratory distress Cardiovascular: normal rate Gastrointestinal: normal inspection, non tender, soft, normal bowel sounds, non -distended Rectal: deferred Genitourinary: no CVA tenderness Musculoskeletal: normal inspection, back normal Neurologic: normal inspection, alert, oriented x3, responsive Psychiatric: normal inspection, judgement/insight normal, memory normal Skin: normal inspection, normal color, no rash, warm/dry, palpation normal, well hydrated Lymphatic: normal inspection, no adenopathy GI: Plan Problems: (1) Alcohol intoxication (2) Persistent vomiting (3) Cyclical vomiting (4) Nausea and vomiting in adult patient (5) Gastritis (6) Depressed (7) Dehydration Plan symptomatic treatment advance diet as tolerated zofran prn electrolyte replacement MVI/thiamine ppi pain mgmt fu labs Discussed with Dr. Sin. Thank you for this patient referral, we will follow. Dana Reed N.P. Jun 20, 2017 10:11
[2017-06-20] MEDS ORDERED: Morphine Sulfate 2mg/ml Inj IVP PRN (10:15)
[2017-06-20] MEDS ORDERED: LORazepam 1mg tab ORAL PRN (10:15)
[2017-06-20 10:40] LABS: ANION GAP 18 mmol/L (5-15); BLOOD UREA NITROGEN 5 mg/dL (7-18); CALCIUM 9.6 MG/DL (8.5-10.1); CARBON DIOXIDE 20 MMOL/L (21-32); CHLORIDE 97 MMOL/L (98-107); CREATININE 0.6 MG/DL (0.55-1.30); POTASSIUM 4.4 MMOL/L (3.5-5.1); SODIUM 135 MMOL/L (136-145)
[2017-06-20 10:45] LABS: ALANINE AMINOTRANSFERASE 22 U/L (12-78); ALBUMIN 4.1 G/DL (3.4-5.0); ALBUMIN/GLOBULIN RATIO 1.2 (1.0-2.7); ALKALINE PHOSPHATASE 79 U/L (46-116); ASPARTATE AMINO TRANSFERASE 31 U/L (15-37); BILIRUBIN,TOTAL 0.9 MG/DL (0.2-1.0)
[2017-06-20] MEDS ORDERED: LORazepam Inj 2mg/ml 1ml IV PRN (11:15)
--- NOTE | 2017-06-20 12:26 | Consultation ---
History of Present Illness General Date patient seen: Jun 20, 2017 Chief Complaint: Nausea, Vomiting, and Diarrhea Referring physician: CLAUDIA HILARIO Reason for Consultation: CYCLIC VOMITING Present Illness Allergies: Coded Allergies: No Known Allergies (Unverified , 10/27/16) Medication History Scheduled PRN Metoclopramide Hcl* (Reglan*), 10 MG ORAL THREE TIMES A DAY PRN for Nausea & Vomiting Discontinued Medications Acetaminophen With Codeine (T#3) (Tylenol #3 Tab*), 1 TAB ORAL Q8H PRN for For Pain Discontinued Reason: Therapy completed Ciprofloxacin Hcl* (Ciprofloxacin Hcl*), 500 MG ORAL Q12H Discontinued Reason: Therapy completed Duloxetine Hcl* (Cymbalta*), 60 MG ORAL DAILY, (Reported) Discontinued Reason: Therapy completed Hydroxyzine Pamoate* (Vistaril*), 50 MG ORAL EVERY 6 HOURS, (Reported) Discontinued Reason: Therapy completed No Known Medications* (NKM - No Known Medications*), 0 ., (Reported) Discontinued Reason: Therapy completed No Known Medications* (NKM - No Known Medications*), 0 ., (Reported) Discontinued Reason: Therapy completed Ondansetron Odt* (Zofran Odt*), 4 MG ORAL Q6H PRN for Nausea & Vomiting Discontinued Reason: Therapy completed Ranitidine Hcl* (Zantac*), 150 MG ORAL TWICE A DAY Discontinued Reason: Therapy completed Patient History Healthcare decision maker Resuscitation status Full Code Advanced Directive on File No Physical Exam Last 24 Hour Vital Signs Date Time Temp Pulse Resp B/P (MAP) Pulse Ox O2 Delivery O2 Flow Rate FiO2 06/20/17 08:00 98.1 87 20 132/90 99 Room Air 98.1 06/20/17 05:24 99.0 92 20 135/90 99 Room Air 99.0 06/20/17 05:23 99.0 92 20 135/90 99 Room Air 99.0 06/20/17 05:00 98.0 94 21 148/99 97 98.0 06/20/17 03:14 98.0 80 20 129/72 99 Room Air 98.0 06/20/17 00:10 98.7 122 20 166/110 97 Room Air 98.8 Intake and Output 06/19/17 06/20/17 19:00 07:00 Intake Total 0 ml Balance 0 ml Intake Oral 0 ml # Voids 1 Laboratory Tests Test 06/20/17 00:40 06/20/17 01:24 06/20/17 10:15 White Blood Count 3.5 K/UL (4.8-10.8) L Red Blood Count 5.46 M/UL (4.20-5.40) H Hemoglobin 17.1 G/DL (12.0-16.0) H Hematocrit 51.6 % (37.0-47.0) H Mean Corpuscular Volume 94 FL (80-99) Mean Corpuscular Hemoglobin 31.2 PG (27.0-31.0) H Mean Corpuscular Hemoglobin Concent 33.1 G/DL (32.0-36.0) Red Cell Distribution Width 14.0 % (11.6-14.8) Platelet Count 182 K/UL (150-450) Mean Platelet Volume 7.1 FL (6.5-10.1) Neutrophils (%) (Auto) 67.1 % (45.0-75.0) Lymphocytes (%) (Auto) 24.9 % (20.0-45.0) Monocytes (%) (Auto) 7.2 % (1.0-10.0) Eosinophils (%) (Auto) 0.0 % (0.0-3.0) Basophils (%) (Auto) 0.9 % (0.0-2.0) Urine Color Pale yellow Urine Appearance Clear Urine pH 5 (4.5-8.0) Urine Specific [place] 1.025 (1.005-1.035) Urine Protein 2+ (NEGATIVE) H Urine Glucose (UA) Negative (NEGATIVE) Urine Ketones 4+ (NEGATIVE) H Urine Occult Blood 1+ (NEGATIVE) H Urine Nitrite Negative (NEGATIVE) Urine Bilirubin Negative (NEGATIVE) Urine Urobilinogen Normal MG/DL (0.0-1.0) Urine Leukocyte Esterase Negative (NEGATIVE) Urine RBC 0-2 /HPF (0 - 2) Urine WBC 0 /HPF (0 - 2) Urine Squamous Epithelial Cells Moderate /LPF (NONE/OCC) H Urine Bacteria None /HPF (NONE) Urine HCG, Qualitative Negative (NEGATIVE) Sodium Level 129 MMOL/L (136-145) L 135 MMOL/L (136-145) L Potassium Level 4.2 MMOL/L (3.5-5.1) 4.4 MMOL/L (3.5-5.1) Chloride Level 88 MMOL/L (98-107) L 97 MMOL/L (98-107) L Carbon Dioxide Level 15 MMOL/L (21-32) L 20 MMOL/L (21-32) L Anion Gap 26 mmol/L (5-15) H 18 mmol/L (5-15) H Blood Urea Nitrogen 4 mg/dL (7-18) L 5 mg/dL (7-18) L Creatinine 0.7 MG/DL (0.55-1.30) 0.6 MG/DL (0.55-1.30) Estimat Glomerular Filtration Rate > 60 mL/min (>60) > 60 mL/min (>60) Glucose Level 125 MG/DL (74-106) H 79 MG/DL (74-106) Calcium Level 10.6 MG/DL (8.5-10.1) H 9.6 MG/DL (8.5-10.1) Total Bilirubin 1.0 MG/DL (0.2-1.0) 0.9 MG/DL (0.2-1.0) Aspartate Amino Transf (AST/SGOT) 48 U/L (15-37) H 31 U/L (15-37) Alanine Aminotransferase (ALT/SGPT) 31 U/L (12-78) 22 U/L (12-78) Alkaline Phosphatase 101 U/L (46-116) 79 U/L (46-116) Total Protein 9.5 G/DL (6.4-8.2) H 7.6 G/DL (6.4-8.2) Albumin 5.2 G/DL (3.4-5.0) H 4.1 G/DL (3.4-5.0) Globulin 4.3 g/dL 3.5 g/dL Albumin/Globulin Ratio 1.2 (1.0-2.7) 1.2 (1.0-2.7) Lipase 174 U/L (73-393) Urine Opiates Screen Negative (NEGATIVE) Urine Barbiturates Screen Negative (NEGATIVE) Phencyclidine (PCP) Screen Negative (NEGATIVE) Urine Amphetamines Screen Negative (NEGATIVE) Urine Benzodiazepines Screen Negative (NEGATIVE) Urine Cocaine Screen Negative (NEGATIVE) Urine Marijuana (THC) Screen Positive (NEGATIVE) H Serum Alcohol < 3 mg/dL Arterial Blood pH 7.392 (7.350-7.450) Arterial Blood Partial Pressure CO2 20.2 mmHg (35.0-45.0) *L Arterial Blood Partial Pressure O2 101.9 mmHg (75.0-100.0) H Arterial Blood HCO3 12.0 mmol/L (22.0-26.0) L Arterial Blood Oxygen Saturation 97.0 % (92.0-98.0) Arterial Blood Base Excess -10.7 Carson Test Positive Height (Feet): 5 Height (Inches): 6.00 Weight (Pounds): 126 Medications Current Medications Medications (Trade) Dose Ordered Sig/Rosangela Route PRN Reason Start Time Stop Time Status Last Admin Dose Admin Dextrose (Dextrose 50%) 25 ml STAT PRN IV Hypoglycemia 06/20/17 10:15 07/20/17 10:14 Dextrose (Dextrose 50%) 50 ml STAT PRN IV Hypoglycemia 06/20/17 10:15 07/20/17 10:14 Diphenhydramine HCl (Benadryl) 25 mg Q6H PRN ORAL Itching/Pruritis 06/20/17 10:15 07/20/17 10:14 Duloxetine HCl (Cymbalta) 60 mg DAILY ORAL 06/20/17 12:00 07/20/17 11:59 Folic Acid (Folate) 1 mg DAILY ORAL 06/20/17 11:00 07/20/17 10:59 Heparin Sodium (Porcine) (Heparin 5000 units/ml) 5,000 units EVERY 12 HOURS SUBQ 06/20/17 21:00 07/20/17 20:59 Lorazepam (Ativan 2mg/ml 1ml) 0.5 mg Q4H PRN IV For Anxiety 06/20/17 11:15 06/27/17 11:14 Lorazepam (Ativan) 1 mg Q4H PRN ORAL Anxiety If Able to Take POs 06/20/17 10:15 06/27/17 10:14 Morphine Sulfate (Morphine Sulfate) 1 mg Q3H PRN IVP For Pain 06/20/17 10:15 06/27/17 10:14 Multivitamins (Multivitamins) 1 tab DAILY ORAL 06/21/17 09:00 07/21/17 08:59 Ondansetron HCl (Zofran) 4 mg Q6H PRN IVP Nausea & Vomiting 06/20/17 10:15 07/20/17 10:14 Pantoprazole (Protonix) 40 mg DAILY ORAL 06/21/17 09:00 07/21/17 08:59 Sodium Chloride 1,000 ml @ 100 mls/hr Q10H IV 06/20/17 11:00 07/20/17 10:59 Thiamine HCl (Vitamin B1) 100 mg DAILY ORAL 06/20/17 11:00 07/20/17 10:59 Haylie Zapata M.D. Jun 20, 2017 12:26
[2017-06-20] MEDS: DULoxetine 30mg cap ORAL SCH (12:27)
[2017-06-20] MEDS: NS w/KCl 20mEq 1,000 ML IV SCH ×2 (12:27→19:54)
[2017-06-20] MEDS: Thiamine 100mg tab ORAL SCH (12:27)
[2017-06-20] MEDS: Morphine Sulfate 4mg/ml Inj IVP PRN (16:36)
[2017-06-20] MEDS: Heparin 5000 units/ml inj SUBQ SCH (20:25)
--- NOTE | 2017-06-20 21:15 | History and Physical Report ---
DATE OF ADMISSION: 06/20/2017 REASON FOR ADMISSION: 1. Nausea and vomiting. 2. Mild hyponatremia. 3. Alcohol dependency. HISTORY OF PRESENT ILLNESS: The patient is a 46-year-old female, well known to be dependent on alcohol. The patient has been drinking approximately 1/5th of vodka and smoking marijuana on a consistent basis. She started to feel ill about 2 or 3 days ago with nausea and vomiting from alcohol dependency and abuse. Since then, she has not felt well. She has not been able to drink any alcohol or eat anything over the past 3 days. She presented to emergency room for nausea and vomiting and further evaluation. She has had ER visits for repeated occurrences of nausea, vomiting, and alcohol dependency. The patient is a member of Alcoholics Anonymous, but has not been there for a while and says she is trying to discontinue her alcohol consumption. Since she stopped alcohol 3 days ago, she is having some night sweats, but no fevers. She is feeling better since admission and IV fluids have been initiated. PAST MEDICAL HISTORY: Alcohol dependency. PAST SURGICAL HISTORY: Breast implants. ALLERGIES: No known drug allergies. FAMILY HISTORY: Positive for alcoholism and hypertension in the father. SOCIAL HISTORY: Positive for alcohol dependency and marijuana use. The patient denies any other illicit drug use. REVIEW OF SYSTEMS: NEUROLOGIC: The patient denies headache, change in vision, syncope or presyncopal episodes. CARDIOVASCULAR: No current chest pain, palpitations, or angina. PULMONARY: No difficulty breathing, cough, or sputum. GASTROINTESTINAL/GENITOURINARY: The patient having nausea and vomiting, but no diarrhea. ENDOCRINOLOGY: Some night sweats. No fevers or chills since stopping alcohol. MUSCULOSKELETAL: The patient feeling weak, tired, and fatigue. PHYSICAL EXAMINATION: GENERAL: The patient is awake, alert, in no acute distress. VITAL SIGNS: Blood pressure 135/90, respiratory rate 20, temperature 99.0 degrees, and 99% oxygen on room air. HEENT: Extraocular muscles intact. NECK: No lymphadenopathy noted. CARDIOVASCULAR: S1 and S2. No rubs or gallops. PULMONARY: Clear to auscultation bilaterally. No rales, rhonchi, or wheezes. ABDOMEN: Nondistended, nontender. EXTREMITIES: No edema. SKIN: warm to touch. LABORATORY AND DIAGNOSTIC DATA: Labs dated 06/20/2017, toxicology screen positive for marijuana. Alcohol level less than 3. Sodium 129, chloride 88, bicarbonate 15, and creatinine 0.7. AST 48, ALT 31, alkaline phosphatase 101. Albumin 5.2. Lipase 174. White cell count 3.5, hemoglobin 17.1, and platelet count 192. ASSESSMENT AND PLAN: 1. Hyponatremia, mild in nature. Sodium 129, secondary to volume depletion and poor solid intake due to heavy alcohol dependency. At this time, continue to encourage p.o. solid food intake along with IV hydration. Alcohol has been discontinued. 2. Alcohol dependency. The patient self-stopped alcohol consumption 70 to 80 hours ago. We will start thiamine and folate and monitor the patient. 3. Nausea and vomiting secondary to heavy alcohol consumption. We will consult Gastroenterology for further evaluation and recommendations. Continue IV hydration. 4. Non-anion gap metabolic acidosis secondary to emesis. At this time, continue aggressive hydration and follow labs closely, potassium 4.2. Mitchel Quezada MD DR: JAM JOB#: [id number] CC: SAI
[2017-06-20] MEDS ORDERED: Trimethobenzamide 100mg/ml 2ml vial IM PRN (22:45)
[2017-06-21] VITALS: BP 151/112
[2017-06-21] MEDS: Morphine Sulfate 4mg/ml Inj IVP PRN (02:35)
[2017-06-21 04:00] VITALS: BP 166/98
[2017-06-21] MEDS: NS w/KCl 20mEq 1,000 ML IV SCH ×2 (05:23→17:00)
[2017-06-21 07:41] LABS: BASOPHILS % (AUTO) 0.5 % (0.0-2.0); EOSINOPHILS % (AUTO) 0.1 % (0.0-3.0); HEMATOCRIT 39.8 % (37.0-47.0); HEMOGLOBIN 13.7 G/DL (12.0-16.0); LYMPHOCYTES % (AUTO) 20.6 % (20.0-45.0); MEAN CORPUSCULAR VOLUME 94 FL (80-99); MONOCYTES % (AUTO) 8.8 % (1.0-10.0); PLATELET COUNT 207 K/UL (150-450); RED BLOOD COUNT 4.22 M/UL (4.20-5.40); RED CELL DISTRIBUTION WIDTH 13.5 % (11.6-14.8); WHITE BLOOD COUNT 6.1 K/UL (4.8-10.8)
[2017-06-21 07:58] LABS: ANION GAP 18 mmol/L (5-15); BLOOD UREA NITROGEN 3 mg/dL (7-18); CALCIUM 8.7 MG/DL (8.5-10.1); CARBON DIOXIDE 18 MMOL/L (21-32); CHLORIDE 95 MMOL/L (98-107); CREATININE 0.5 MG/DL (0.55-1.30); POTASSIUM 3.6 MMOL/L (3.5-5.1); SODIUM 131 MMOL/L (136-145)
[2017-06-21 08:00] VITALS: BP 175/111
[2017-06-21] MEDS ORDERED: Labetalol 5mg/ml 20ml vial IV PRN (08:45)
[2017-06-21] MEDS ORDERED: Thiamine 100mg tab ORAL SCH (09:00)
[2017-06-21] MEDS: Heparin 5000 units/ml inj SUBQ SCH ×2 (09:00→20:21)
[2017-06-21] MEDS: Thiamine 100mg tab ORAL SCH (09:03)
[2017-06-21] MEDS: Metoprolol Tartrate 12.5mg TAB ORAL SCH ×2 (09:03→20:19)
[2017-06-21] MEDS: DULoxetine 30mg cap ORAL SCH (09:04)
--- NOTE | 2017-06-21 09:23 | Nephrology Progress Note ---
Assessment/Plan Assessment/Plan 1. Electrolyte Abnormality - due to alcohol dependancy and poor solute intake - replace Mg and phos/K+ prn - continue NS and Na level improved - continue to encourage po 2. N/V- due to alcohol withdrawl. Management per GI 3. HTN- Lopressor added with prn Clonidine 4. Depression- SSRI continued Subjective Date patient seen: Jun 21, 2017 Time patient seen: 09:18 ROS Limited/Unobtainable: No Constitutional: Reports: other - fatigued HEENT: Reports: no symptoms Cardiovascular: Reports: no symptoms Respiratory: Reports: no symptoms Gastrointestinal/Abdominal: Reports: nausea, vomiting Genitourinary: Reports: no symptoms Neurologic/Psychiatric: Reports: weakness Allergies: Coded Allergies: No Known Allergies (Unverified , 10/27/16) All Systems: reviewed and negative except above Subjective Patient now 96 hrs from last alcoholic drink. Slowly improving, still with N/V but improved. Objective Last 24 Hour Vital Signs Date Time Temp Pulse Resp B/P (MAP) Pulse Ox O2 Delivery O2 Flow Rate FiO2 06/21/17 09:03 77 175/111 06/21/17 08:00 98.0 77 12 175/111 98 98.0 06/21/17 04:00 98.7 76 21 166/98 97 98.7 06/21/17 00:00 98.6 87 21 151/112 100 98.6 06/20/17 20:00 98.2 85 21 156/100 100 98.2 06/20/17 16:00 97.9 91 20 150/90 99 Room Air 97.9 06/20/17 12:00 98.1 99 20 139/90 99 Room Air 98.1 Intake and Output 06/20/17 06/21/17 19:00 07:00 Intake Total 360 ml 1000 ml Balance 360 ml 1000 ml Intake Oral 360 ml IV Total 1000 ml # Voids 2 2 Laboratory Tests 06/20/17 10:15: Sodium Level 135L, Potassium Level 4.4, Chloride Level 97L, Carbon Dioxide Level 20L, Anion Gap 18H, Blood Urea Nitrogen 5L, Creatinine 0.6, Estimat Glomerular Filtration Rate > 60, Glucose Level 79, Calcium Level 9.6, Total Bilirubin 0.9, Aspartate Amino Transf (AST/SGOT) 31, Alanine Aminotransferase ( ALT/SGPT) 22, Alkaline Phosphatase 79, Total Protein 7.6, Albumin 4.1, Globulin 3.5, Albumin/Globulin Ratio 1.2 06/21/17 06:00: Sodium Level 131L, Potassium Level 3.6, Chloride Level 95L, Carbon Dioxide Level 18L, Anion Gap 18H, Blood Urea Nitrogen 3L, Creatinine 0.5L, Estimat Glomerular Filtration Rate > 60, Glucose Level 85, Calcium Level 8.7, White Blood Count 6.1#, Red Blood Count 4.22, Hemoglobin 13.7, Hematocrit 39.8, Mean Corpuscular Volume 94, Mean Corpuscular Hemoglobin 32.6H, Mean Corpuscular Hemoglobin Concent 34.5, Red Cell Distribution Width 13.5, Platelet Count 207, Mean Platelet Volume 7.7, Neutrophils (%) (Auto) 70.0, Lymphocytes (%) (Auto) 20.6, Monocytes (%) (Auto) 8.8, Eosinophils (%) (Auto) 0.1, Basophils (%) (Auto ) 0.5, Phosphorus Level 2.1L, Magnesium Level 1.5L Height (Feet): 5 Height (Inches): 6.00 Weight (Pounds): 126 General Appearance: WD/WN, no apparent distress EENT: PERRL/EOMI, normal ENT inspection Neck: non-tender, normal alignment, supple Cardiovascular: normal peripheral pulses, normal rate, regular rhythm Respiratory/Chest: chest wall non-tender, lungs clear, normal breath sounds, no respiratory distress Abdomen: normal bowel sounds, non tender, soft Extremities: normal range of motion, non-tender Edema: no edema noted Arm (L), no edema noted Arm (R), no edema noted Leg (L), no edema noted Leg (R), no edema noted Pedal (L), no edema noted Pedal (R), no edema noted Generalized Mitchel Quezada M.D. Jun 21, 2017 09:23
[2017-06-21] MEDS ORDERED: Sodium Phosphate 30 MM in NS 275 ML IVPB ONE (10:30)
--- NOTE | 2017-06-21 10:55 | GI Progress Note ---
Assessment/Plan Problems: (1) Depressed ICD Codes: F32.9 - Major depressive disorder, single episode, unspecified SNOMED: 24779252 (2) Dehydration ICD Codes: E86.0 - Dehydration SNOMED: 48868044 (3) Nausea and vomiting in adult patient ICD Codes: R11.2 - Nausea with vomiting, unspecified SNOMED: 88046829 (4) Alcohol intoxication ICD Codes: F10.929 - Alcohol use, unspecified with intoxication, unspecified SNOMED: 02545215 (5) Persistent vomiting ICD Codes: R11.10 - Vomiting, unspecified SNOMED: 813949913 (6) Cyclical vomiting ICD Codes: G43.A0 - Cyclical vomiting, not intractable SNOMED: 96367537 (7) Colitis ICD Codes: K52.9 - Noninfective gastroenteritis and colitis, unspecified SNOMED: 12133174 Status: unchanged Status Narrative Discussed with Dr. Sin. Assessment/Plan symptomatic treatment advance diet as tolerated compazine prn electrolyte replacement MVI/thiamine ppi pain mgmt fu labs Subjective Subjective had episode of emesis Objective Last 24 Hour Vital Signs Date Time Temp Pulse Resp B/P (MAP) Pulse Ox O2 Delivery O2 Flow Rate FiO2 06/21/17 09:03 77 175/111 06/21/17 08:00 98.0 77 12 175/111 98 98.0 06/21/17 04:00 98.7 76 21 166/98 97 98.7 06/21/17 00:00 98.6 87 21 151/112 100 98.6 06/20/17 20:00 98.2 85 21 156/100 100 98.2 06/20/17 16:00 97.9 91 20 150/90 99 Room Air 97.9 06/20/17 12:00 98.1 99 20 139/90 99 Room Air 98.1 Intake and Output 06/20/17 06/21/17 19:00 07:00 Intake Total 360 ml 1000 ml Balance 360 ml 1000 ml Intake Oral 360 ml IV Total 1000 ml # Voids 2 2 Laboratory Tests Test 06/21/17 06:00 White Blood Count 6.1 K/UL (4.8-10.8) # Red Blood Count 4.22 M/UL (4.20-5.40) Hemoglobin 13.7 G/DL (12.0-16.0) Hematocrit 39.8 % (37.0-47.0) Mean Corpuscular Volume 94 FL (80-99) Mean Corpuscular Hemoglobin 32.6 PG (27.0-31.0) H Mean Corpuscular Hemoglobin Concent 34.5 G/DL (32.0-36.0) Red Cell Distribution Width 13.5 % (11.6-14.8) Platelet Count 207 K/UL (150-450) Mean Platelet Volume 7.7 FL (6.5-10.1) Neutrophils (%) (Auto) 70.0 % (45.0-75.0) Lymphocytes (%) (Auto) 20.6 % (20.0-45.0) Monocytes (%) (Auto) 8.8 % (1.0-10.0) Eosinophils (%) (Auto) 0.1 % (0.0-3.0) Basophils (%) (Auto) 0.5 % (0.0-2.0) Sodium Level 131 MMOL/L (136-145) L Potassium Level 3.6 MMOL/L (3.5-5.1) Chloride Level 95 MMOL/L (98-107) L Carbon Dioxide Level 18 MMOL/L (21-32) L Anion Gap 18 mmol/L (5-15) H Blood Urea Nitrogen 3 mg/dL (7-18) L Creatinine 0.5 MG/DL (0.55-1.30) L Estimat Glomerular Filtration Rate > 60 mL/min (>60) Glucose Level 85 MG/DL (74-106) Calcium Level 8.7 MG/DL (8.5-10.1) Phosphorus Level 2.1 MG/DL (2.5-4.9) L Magnesium Level 1.5 MG/DL (1.8-2.4) L Height (Feet): 5 Height (Inches): 6.00 Weight (Pounds): 126 General Appearance: WD/WN, no apparent distress, alert Cardiovascular: normal rate Respiratory/Chest: normal breath sounds, no respiratory distress Abdominal Exam: normal bowel sounds, non tender, soft Extremities: normal range of motion, non-tender Dana Reed N.P. Jun 21, 2017 10:55
[2017-06-21 11:43] VITALS: BP 131/95
--- NOTE | 2017-06-21 13:31 | General Progress Note ---
Assessment/Plan Status: stable, progressing Assessment/Plan alcohol w/d alcohol dependence mdd Cymbalta 60qam valium prn thiamine folate Subjective Date patient seen: Jun 21, 2017 Gastrointestinal/Abdominal: Reports: nausea, poor fluid intake, vomiting Neurologic/Psychiatric: Reports: anxiety, depressed, emotional problems Allergies: Coded Allergies: No Known Allergies (Unverified , 10/27/16) Objective Last 24 Hour Vital Signs Date Time Temp Pulse Resp B/P (MAP) Pulse Ox O2 Delivery O2 Flow Rate FiO2 06/21/17 11:43 97.6 82 18 131/95 97 97.6 06/21/17 09:03 77 175/111 06/21/17 08:00 98.0 77 12 175/111 98 98.0 06/21/17 04:00 98.7 76 21 166/98 97 98.7 06/21/17 00:00 98.6 87 21 151/112 100 98.6 06/20/17 20:00 98.2 85 21 156/100 100 98.2 06/20/17 16:00 97.9 91 20 150/90 99 Room Air 97.9 Intake and Output 06/20/17 06/21/17 19:00 07:00 Intake Total 360 ml 1000 ml Balance 360 ml 1000 ml Intake Oral 360 ml IV Total 1000 ml # Voids 2 2 Laboratory Tests 06/21/17 06:00: White Blood Count 6.1#, Red Blood Count 4.22, Hemoglobin 13.7, Hematocrit 39.8, Mean Corpuscular Volume 94, Mean Corpuscular Hemoglobin 32.6H, Mean Corpuscular Hemoglobin Concent 34.5, Red Cell Distribution Width 13.5, Platelet Count 207, Mean Platelet Volume 7.7, Neutrophils (%) (Auto) 70.0, Lymphocytes (%) (Auto) 20.6, Monocytes (%) (Auto) 8.8, Eosinophils (%) (Auto) 0.1, Basophils (%) (Auto ) 0.5, Sodium Level 131L, Potassium Level 3.6, Chloride Level 95L, Carbon Dioxide Level 18L, Anion Gap 18H, Blood Urea Nitrogen 3L, Creatinine 0.5L, Estimat Glomerular Filtration Rate > 60, Glucose Level 85, Calcium Level 8.7, Phosphorus Level 2.1L, Magnesium Level 1.5L Height (Feet): 5 Height (Inches): 6.00 Weight (Pounds): 126 General Appearance: no apparent distress, alert Neurologic: alert, oriented x 3, responsive, depressed affect Haylie Zapata M.D. Jun 21, 2017 13:31
[2017-06-21 16:00] VITALS: BP 165/116
[2017-06-21 20:00] VITALS: BP 136/76
[2017-06-22] VITALS (7 sets, daily range): BP systolic 121–180; BP diastolic 84–122
[2017-06-22] MEDS: NS w/KCl 20mEq 1,000 ML IV SCH ×3 (03:24→22:03)
[2017-06-22 08:23] LABS: ANION GAP 12 mmol/L (5-15); BLOOD UREA NITROGEN 4 mg/dL (7-18); CALCIUM 9.2 MG/DL (8.5-10.1); CARBON DIOXIDE 21 MMOL/L (21-32); CHLORIDE 100 MMOL/L (98-107); CREATININE 0.6 MG/DL (0.55-1.30); PHOSPHORUS 3.6 MG/DL (2.5-4.9); POTASSIUM 3.3 MMOL/L (3.5-5.1); SODIUM 133 MMOL/L (136-145)
[2017-06-22] MEDS: DULoxetine 30mg cap ORAL SCH (08:47)
[2017-06-22] MEDS: Metoprolol Tartrate 12.5mg TAB ORAL SCH ×2 (08:47→20:57)
[2017-06-22] MEDS: Thiamine 100mg tab ORAL SCH (08:47)
[2017-06-22] MEDS: Heparin 5000 units/ml inj SUBQ SCH ×2 (08:48→20:58)
--- NOTE | 2017-06-22 09:14 | Nephrology Progress Note ---
Assessment/Plan Assessment/Plan 1. Electrolyte Abnormality -Hyponatremia/phos and Mg resolved - K+ at 3.3, replace po this am 2. N/V- due to alcohol withdrawl. Management per GI. Resolved. DC today after lunch if patient tolerates reg veg diet 3. HTN- Lopressor. BP stable 4. Depression- SSRI continued Subjective Date patient seen: Jun 22, 2017 Time patient seen: 09:09 Constitutional: Reports: no symptoms HEENT: Reports: no symptoms Cardiovascular: Reports: no symptoms Respiratory: Reports: no symptoms Gastrointestinal/Abdominal: Reports: other - N/V resolved Genitourinary: Reports: no symptoms Allergies: Coded Allergies: No Known Allergies (Unverified , 10/27/16) Subjective N/V resolved. Patient would like to try full reg vegetarian diet at lunch Objective Last 24 Hour Vital Signs Date Time Temp Pulse Resp B/P (MAP) Pulse Ox O2 Delivery O2 Flow Rate FiO2 06/22/17 08:49 98.2 74 20 121/84 100 98.2 06/22/17 08:47 74 121/84 06/22/17 04:00 98.2 84 19 128/96 96 98.2 06/22/17 00:00 97.3 71 19 130/92 97 97.3 06/21/17 20:19 84 136/76 06/21/17 20:00 97.4 84 18 136/76 97 Room Air 97.4 06/21/17 16:14 165/116 06/21/17 16:00 98.0 104 18 165/116 96 98.0 06/21/17 11:43 97.6 82 18 131/95 97 97.6 Intake and Output 06/21/17 06/22/17 19:00 07:00 Intake Total 1055.0 ml 1350 ml Balance 1055.0 ml 1350 ml Intake Oral 360 ml 400 ml IV Total 695.0 ml 950 ml # Voids 1 Laboratory Tests 06/22/17 07:30: Sodium Level 133L, Potassium Level 3.3L, Chloride Level 100, Carbon Dioxide Level 21, Anion Gap 12, Blood Urea Nitrogen 4L, Creatinine 0.6, Estimat Glomerular Filtration Rate > 60, Glucose Level 85, Calcium Level 9.2, Phosphorus Level 3.6, Magnesium Level 1.8 Height (Feet): 5 Height (Inches): 6.00 Weight (Pounds): 126 General Appearance: WD/WN, no apparent distress EENT: PERRL/EOMI, normal ENT inspection Neck: non-tender, normal alignment Cardiovascular: normal peripheral pulses, normal rate Respiratory/Chest: chest wall non-tender, lungs clear Abdomen: normal bowel sounds, non tender Extremities: normal range of motion, non-tender Edema: no edema noted Arm (L), no edema noted Arm (R), no edema noted Leg (L), no edema noted Leg (R), no edema noted Pedal (L), no edema noted Pedal (R), no edema noted Generalized Mitchel Quezada M.D. Jun 22, 2017 09:14
--- NOTE | 2017-06-22 12:52 | General Progress Note ---
Assessment/Plan Problem List: (1) Cannabinoid hyperemesis syndrome ICD Codes: F12.988 - Cannabis use, unspecified with other cannabis-induced disorder SNOMED: 153426397, 885143266 (2) Nausea and vomiting in adult patient ICD Codes: R11.2 - Nausea with vomiting, unspecified SNOMED: 69663242 (3) Depressed ICD Codes: F32.9 - Major depressive disorder, single episode, unspecified SNOMED: 36879170 (4) Cyclical vomiting ICD Codes: G43.A0 - Cyclical vomiting, not intractable SNOMED: 88327047 (5) Gastritis ICD Codes: K29.70 - Gastritis, unspecified, without bleeding SNOMED: 5706372 Assessment/Plan symptomatic treatment on reg diet compazine prn electrolyte replacement MVI/thiamine ppi pain mgmt fu labs avoid cannabinoids Subjective ROS Limited/Unobtainable: Yes Allergies: Coded Allergies: No Known Allergies (Unverified , 10/27/16) Subjective no event Objective Last 24 Hour Vital Signs Date Time Temp Pulse Resp B/P (MAP) Pulse Ox O2 Delivery O2 Flow Rate FiO2 06/22/17 12:39 180/122 06/22/17 08:49 98.2 74 20 121/84 100 98.2 06/22/17 08:47 74 121/84 06/22/17 04:00 98.2 84 19 128/96 96 98.2 06/22/17 00:00 97.3 71 19 130/92 97 97.3 06/21/17 20:19 84 136/76 06/21/17 20:00 97.4 84 18 136/76 97 Room Air 97.4 06/21/17 16:14 165/116 06/21/17 16:00 98.0 104 18 165/116 96 98.0 Intake and Output 06/21/17 06/22/17 19:00 07:00 Intake Total 1055.0 ml 1350 ml Balance 1055.0 ml 1350 ml Intake Oral 360 ml 400 ml IV Total 695.0 ml 950 ml # Voids 1 Laboratory Tests 06/22/17 07:30: Sodium Level 133L, Potassium Level 3.3L, Chloride Level 100, Carbon Dioxide Level 21, Anion Gap 12, Blood Urea Nitrogen 4L, Creatinine 0.6, Estimat Glomerular Filtration Rate > 60, Glucose Level 85, Calcium Level 9.2, Phosphorus Level 3.6, Magnesium Level 1.8 Height (Feet): 5 Height (Inches): 6.00 Weight (Pounds): 126 General Appearance: alert EENT: normal ENT inspection Neck: supple Cardiovascular: normal rate Respiratory/Chest: decreased breath sounds Abdomen: normal bowel sounds, non tender, soft Extremities: non-tender NICOLA SOLORZANO Jun 22, 2017 12:52
[2017-06-22] MEDS ORDERED: Tubing IV Secondary IV ONE (14:58)
[2017-06-23] VITALS: BP 122/88
[2017-06-23 04:00] VITALS: BP 136/85
--- NOTE | 2017-06-23 07:09 | General Progress Note ---
Assessment/Plan Problem List: (1) Cannabinoid hyperemesis syndrome ICD Codes: F12.988 - Cannabis use, unspecified with other cannabis-induced disorder SNOMED: 157750677, 988781671 (2) Nausea and vomiting in adult patient ICD Codes: R11.2 - Nausea with vomiting, unspecified SNOMED: 67120628 (3) Depressed ICD Codes: F32.9 - Major depressive disorder, single episode, unspecified SNOMED: 22838725 (4) Cyclical vomiting ICD Codes: G43.A0 - Cyclical vomiting, not intractable SNOMED: 17543191 (5) Gastritis ICD Codes: K29.70 - Gastritis, unspecified, without bleeding SNOMED: 4028204 Assessment/Plan symptomatic treatment on reg diet compazine prn electrolyte replacement MVI/thiamine ppi pain mgmt fu labs avoid cannabinoids Subjective ROS Limited/Unobtainable: Yes Allergies: Coded Allergies: No Known Allergies (Unverified , 10/27/16) Subjective no event Objective Last 24 Hour Vital Signs Date Time Temp Pulse Resp B/P (MAP) Pulse Ox O2 Delivery O2 Flow Rate FiO2 06/23/17 04:00 98.3 74 18 136/85 100 Room Air 98.3 06/23/17 00:00 98.2 18 122/88 98 Room Air 98.2 06/22/17 20:57 98 134/95 06/22/17 20:00 98.3 98 20 134/95 97 98.3 06/22/17 20:00 Room Air 06/22/17 16:00 98.1 84 17 157/114 96 Room Air 98.1 06/22/17 14:22 158/113 06/22/17 12:39 180/122 06/22/17 12:00 97.5 62 20 180/122 97 Room Air 97.5 06/22/17 08:49 98.2 74 20 121/84 100 98.2 06/22/17 08:47 74 121/84 Intake and Output 06/22/17 06/23/17 19:00 07:00 Intake Total 1660 ml 1240 ml Balance 1660 ml 1240 ml Intake Oral 560 ml 240 ml IV Total 1100 ml 1000 ml # Voids 1 1 Laboratory Tests 06/22/17 07:30: Sodium Level 133L, Potassium Level 3.3L, Chloride Level 100, Carbon Dioxide Level 21, Anion Gap 12, Blood Urea Nitrogen 4L, Creatinine 0.6, Estimat Glomerular Filtration Rate > 60, Glucose Level 85, Calcium Level 9.2, Phosphorus Level 3.6, Magnesium Level 1.8 Height (Feet): 5 Height (Inches): 6.00 Weight (Pounds): 126 General Appearance: alert EENT: PERRL/EOMI Neck: supple Cardiovascular: normal rate Respiratory/Chest: lungs clear Abdomen: normal bowel sounds, non tender, soft Extremities: non-tender NICOLA SOLORZANO Jun 23, 2017 07:09
[2017-06-23 08:00] VITALS: BP 158/100
[2017-06-23] MEDS: Thiamine 100mg tab ORAL SCH (08:24)
[2017-06-23] MEDS: DULoxetine 30mg cap ORAL SCH (08:24)
[2017-06-23] MEDS: NS w/KCl 20mEq 1,000 ML IV SCH (08:24)
[2017-06-23] MEDS: Heparin 5000 units/ml inj SUBQ SCH (08:26)
[2017-06-23] MEDS: Metoprolol Tartrate 12.5mg TAB ORAL SCH (08:28)
--- NOTE | 2017-06-23 09:13 | Discharge Instructions ---
Discharge Instructions Discharge Instructions Diet: other - vegetarian Resume Normal Activity?: Yes Activity: resume normal activities, no restrictions Pneumonia Vaccine: vaccine not indicated Influenza Vaccine (Dec to May): vaccine not indicated Follow Up Orders 1. Follow up with Alcohol dpendancy physician Saturday for Naltrexone management 2. Psy appointment arranged per patient for alcohol counselling 3. HTN- continue lopressor and have PCP adjust medication For Congestive Heart Failure Reminder Report to your physician any weight gain of 5 pounds or more in one week. Mitchel Quezada M.D. Jun 23, 2017 09:13
[2017-06-23 10:19] LABS: HEMATOCRIT 35.7 % (37.0-47.0); HEMOGLOBIN 12.2 G/DL (12.0-16.0); MEAN CORPUSCULAR VOLUME 95 FL (80-99); PLATELET COUNT 166 K/UL (150-450); RED BLOOD COUNT 3.75 M/UL (4.20-5.40); RED CELL DISTRIBUTION WIDTH 13.3 % (11.6-14.8); WHITE BLOOD COUNT 3.4 K/UL (4.8-10.8)
[2017-06-23 11:10] LABS: ANION GAP 10 mmol/L (5-15); BLOOD UREA NITROGEN 3 mg/dL (7-18); CALCIUM 9.1 MG/DL (8.5-10.1); CARBON DIOXIDE 22 MMOL/L (21-32); CHLORIDE 100 MMOL/L (98-107); CREATININE 0.5 MG/DL (0.55-1.30); POTASSIUM 3.6 MMOL/L (3.5-5.1); SODIUM 132 MMOL/L (136-145)
[2017-06-23 11:13] LABS: PHOSPHORUS 3.5 MG/DL (2.5-4.9)
[2017-06-23] MEDS ORDERED: METOPROLOL SUCC25 MG ORAL (11:13)
[2017-06-23] MEDS ORDERED: METOPROLOL TART25 MG ORAL (11:48)
[2017-06-23 12:00] VITALS: BP 149/91
--- NOTE | 2017-06-23 21:45 | Discharge Summary ---
DATE OF ADMISSION: 06/20/2017 DATE OF DISCHARGE: 06/23/2017 DATE OF ADMISSION: June 20, 2017. DATE OF DISCHARGE: June 23, 2017. REASON FOR HOSPITALIZATION: 1. Nausea and vomiting. 2. Mild hyponatremia. 3. Alcohol dependency. HOSPITALIZATION COURSE: The patient is a 46-year-old female who is alcohol dependent and had been attempting to discontinue drinking. She had been consuming a fifth of vodka and marijuana on a consistent basis. She started feeling ill with episodes of nausea and emesis and had several visits to the emergency room for hydration and antinausea medication. On this occasion, she was admitted for further evaluation and management and hydration. Her hospitalization was uneventful. The patient proceedingly improved every day and three days later the patient is stable for discharge. She is able to tolerate solid food and has appointments with her psychiatrist and alcohol dependency doctor after discharge. LABORATORY AND DIAGNOSTIC DATA: Chemistry dated June 22, 2017, sodium 133, potassium 3.3, BUN 12, creatinine 0.6. June 23, 2017 labs still pending. CONSULTATIONS: GI for nausea and vomiting. DISCHARGE MEDICATIONS: 1. Lopressor 12.5 mg b.i.d. 2. Cymbalta daily 60 mg. DISPOSITION AT DISCHARGE: Stable. DISCHARGE FOLLOWUP: 1. The patient to see her alcohol dependency tomorrow for her Naltrexone injection. 2. Psychiatrist for alcohol dependency counseling, the patient has her own psychiatrist and has made a followup appointment. 3. The patient said she will continue to follow with primary care physician as an outpatient basis. Mitchel Quezada MD DR: Gerardo JOB#: [id number] CC:
--- NOTE | 2017-06-24 23:59 | General Progress Note ---
Assessment/Plan Assessment/Plan alcohol w/d alcohol dependence mdd Cymbalta 60qam valium prn thiamine folate Subjective Allergies: Coded Allergies: No Known Allergies (Unverified , 10/27/16) Objective Height (Feet): 5 Height (Inches): 6.00 Weight (Pounds): 126 Haylie Zapata M.D. Jun 24, 2017 23:59
== END 2017-06-23 15:23 | disposition home or self-care (01) | DRG 775 ==
LOC: EDBD 00:19 → EMR 00:29 → 4E 04:07 → EDBEDREQ 04:38
DX: F10.229 Alcohol dependence with intoxication, unspecified (principal); F10.239 Alcohol dependence with withdrawal, unspecified; E87.2 Acidosis; E87.1 Hypo-osmolality and hyponatremia; E86.0 Dehydration; F32.9 Major depressive disorder, single episode, unspecified; R74.8 Abnormal levels of other serum enzymes; K29.70 Gastritis, unspecified, without bleeding; F12.90 Cannabis use, unspecified, uncomplicated; I10 Essential (primary) hypertension; K52.9 Noninfective gastroenteritis and colitis, unspecified; E83.39 Other disorders of phosphorus metabolism; E83.42 Hypomagnesemia; G43.A0 Cyclical vomiting, in migraine, not intractable; T40.7X5A Adverse effect of cannabis (derivatives), initial encounter; Y92.89 Other specified places as the place of occurrence of the external cause
CPT/HCPCS: 36415; 36600; 80048; 80053; 80307; 80329; 81003; 81025; 82803; 83690; 83735; 84100; 85007; 85025; 99285; J2405; J2765; J8499

== ENCOUNTER → 2017-07-29 | Emergency (ER) | payer MEDICAID ==
[~2017-07-29] VITALS: Ht 162.6 cm; Wt 54.4 kg
[~2017-07-29] MED LIST changes: +Isovue-300 100ml vial INJ PRN; +METOPROLOL SUCC25 MG ORAL; +METOPROLOL TART25 MG ORAL
[2017-07-29 19:44] VITALS: BP 132/68
--- NOTE | 2017-07-29 23:13 | Emergency Room Report ---
History of Present Illness General Chief Complaint: Abdominal Pain Source: Patient, EMS Present Illness HPI Left without being seen Allergies: Coded Allergies: No Known Allergies (Unverified , 10/27/16) Patient History Social History: Reports: alcohol use Last Menstrual Period: 2 months ago Now: No Reviewed Nursing Documentation: PMH: Agreed; PSxH: Agreed Nursing Documentation-PMH Hx Hypertension: Yes Hx Neurological Problems: No - Chronic Alcoholic Physical Exam Vital Signs Date Time Temp Pulse Resp B/P (MAP) Pulse Ox O2 Delivery O2 Flow Rate FiO2 07/29/17 19:37 98.4 78 18 132/68 98 Room Air 98.4 Medical Decision Making Diagnostic Impression: Primary Impression: Patient left without being seen ER Course Patient left without being seen Last Vital Signs Date Time Temp Pulse Resp B/P (MAP) Pulse Ox O2 Delivery O2 Flow Rate FiO2 07/29/17 19:44 98.4 18 132/68 98 Room Air 98.4 07/29/17 19:37 78 Referrals: [facility]ERR[facility] (PCP) ANA MARIA LARSON D.O. July 29, 2017 23:13
== END | disposition left against medical advice (07) ==
LOC: EDUNIT# 19:36 → EDBD 19:56 → EMR 20:30
DX: R10.9 Unspecified abdominal pain (principal); Z53.21 Procedure and treatment not carried out due to patient leaving prior to being seen by health care provider
CPT/HCPCS: 99281

== ENCOUNTER 2017-10-21 23:27 | Emergency (ER) | payer MEDICAID ==
[~2017-10-21] VITALS: Ht 160 cm; Wt 55.3 kg
[~2017-10-21 23:27] MED LIST changes: -Isovue-300 100ml vial INJ PRN
[2017-10-21] MEDS ORDERED: Ketorolac 30mg Inj IV ONE (23:45)
[2017-10-21] MEDS ORDERED: Isovue-300 100ml vial INJ PRN (23:45)
[2017-10-21] MEDS ORDERED: Morphine Sulfate 4mg/ml Inj (IV USE ONLY) IVP ONE (23:45)
[2017-10-21 23:50] VITALS: BP 172/108
--- NOTE | 2017-10-21 23:52 | Emergency Room Report ---
History of Present Illness General Chief Complaint: Abdominal Pain Source: Patient, EMS Present Illness HPI The patient presents with 5 hours of right flank pain. It's severe at this time. She been vomiting and can't keep anything down. She tried drinking 2 beers vomited back up. She felt this way when she had kidney stones in the past. The pain radiates from her flank down into her groin. Her urine has been in [place] color and she hasn't taken any other medication. She denies dysuria. She's been passing gas and moving her bowels. There is no diarrhea or constipation. She rates the pain 8/10 and constant. Paramedics treated the patient with 4 mg of Zofran sublingually. Her last period was in May. The patient's been seen here in the past for abdominal pain and colitis. Occasionally she has be admitted to the hospital. In addition to that she's had problems with alcohol abuse. Allergies: Coded Allergies: No Known Allergies (Unverified , 10/27/16) Patient History Past Medical History: see triage record Social History: Reports: smoking, alcohol use Social History Narrative from home Last Menstrual Period: menopause Reviewed Nursing Documentation: PMH: Agreed; PSxH: Agreed Nursing Documentation-PMH Hx Hypertension: Yes History Of Psychiatric Problem: Yes - DEPRESSION Hx Neurological Problems: No - Chronic Alcoholic Review of Systems All Other Systems: negative except mentioned in HPI Physical Exam Vital Signs Date Time Temp Pulse Resp B/P (MAP) Pulse Ox O2 Delivery O2 Flow Rate FiO2 10/21/17 23:29 98.4 96 18 157/113 98 Room Air 98.4 Sp02 EP Interpretation: reviewed, normal General Appearance: well appearing, no apparent distress, GCS 15 Head: normocephalic Eyes: bilateral eye normal inspection, bilateral eye PERRL ENT: moist mucus membranes Neck: supple Respiratory: lungs clear, normal breath sounds Cardiovascular #1: regular rate, rhythm Cardiovascular #2: 2+ radial (R) Gastrointestinal: normal inspection, normal bowel sounds, no mass, non- distended, no guarding, no rebound, tenderness Genitourinary: CVA tenderness (R) - minimal Musculoskeletal: back normal, gait/station normal, normal range of motion Neurologic: alert, oriented x3, grossly normal Psychiatric: mood/affect normal Skin: normal inspection, warm/dry Medical Decision Making Diagnostic Impression: Primary Impression: Hypokalemia Additional Impressions: Intractable vomiting Qualified Codes: R11.2 - Nausea with vomiting, unspecified Flank pain Pyelonephritis Alcohol ingestion ER Course Patient presents with right sided flank pain. Differential includes renal stone , colitis, pyelonephritis or UTI amongst others. She'll be evaluated with labs and CT scan. She'll receive IV hydration and analgesia. Potassium critically low. K ordered. Patient still vomiting. Pain improved. Requests something for anxiety. Admit med. CT still pending. Discussed with Dr. Bailey,. Patient transferred. Improved. Laboratory Tests Test 10/21/17 23:43 White Blood Count 5.6 K/UL (4.8-10.8) Red Blood Count 4.99 M/UL (4.20-5.40) Hemoglobin 16.1 G/DL (12.0-16.0) H Hematocrit 45.3 % (37.0-47.0) Mean Corpuscular Volume 91 FL (80-99) Mean Corpuscular Hemoglobin 32.3 PG (27.0-31.0) H Mean Corpuscular Hemoglobin Concent 35.6 G/DL (32.0-36.0) Red Cell Distribution Width 12.5 % (11.6-14.8) Platelet Count 143 K/UL (150-450) L Mean Platelet Volume 9.7 FL (6.5-10.1) Neutrophils (%) (Auto) 54.6 % (45.0-75.0) Lymphocytes (%) (Auto) 33.8 % (20.0-45.0) Monocytes (%) (Auto) 9.4 % (1.0-10.0) Eosinophils (%) (Auto) 1.2 % (0.0-3.0) Basophils (%) (Auto) 1.1 % (0.0-2.0) Prothrombin Time 10.0 SEC (9.30-11.50) Prothrombin Time INR 0.9 (0.9-1.1) PTT 27 SEC (23-33) Urine Color Yellow Urine Appearance Cloudy Urine pH 5 (4.5-8.0) Urine Specific [place] 1.020 (1.005-1.035) Urine Protein 2+ (NEGATIVE) H Urine Glucose (UA) Negative (NEGATIVE) Urine Ketones 3+ (NEGATIVE) H Urine Occult Blood 1+ (NEGATIVE) H Urine Nitrite Negative (NEGATIVE) Urine Bilirubin Negative (NEGATIVE) Urine Urobilinogen 1 MG/DL (0.0-1.0) H Urine Leukocyte Esterase 2+ (NEGATIVE) H Urine RBC 2-4 /HPF (0 - 2) H Urine WBC 5-10 /HPF (0 - 2) H Urine Squamous Epithelial Cells Many /LPF (NONE/OCC) H Urine Bacteria Many /HPF (NONE) H Urine HCG, Qualitative Negative (NEGATIVE) Sodium Level 131 MMOL/L (136-145) L Potassium Level 2.4 MMOL/L (3.5-5.1) *L Chloride Level 85 MMOL/L (98-107) L Carbon Dioxide Level 21 MMOL/L (21-32) Anion Gap 24 mmol/L (5-15) H Blood Urea Nitrogen 8 mg/dL (7-18) Creatinine 0.7 MG/DL (0.55-1.30) Estimate Glomerular Filtration Rate > 60 mL/min (>60) Glucose Level 104 MG/DL (74-106) Calcium Level 10.4 MG/DL (8.5-10.1) H Total Bilirubin 1.1 MG/DL (0.2-1.0) H Direct Bilirubin 0.3 MG/DL (0.0-0.3) Aspartate Amino Transferase (AST) 93 U/L (15-37) H Alanine Aminotransferase (ALT) 79 U/L (12-78) H Alkaline Phosphatase 110 U/L (46-116) Total Protein 9.1 G/DL (6.4-8.2) H Albumin 4.7 G/DL (3.4-5.0) Globulin 4.4 g/dL Albumin/Globulin Ratio 1.1 (1.0-2.7) Lipase 372 U/L (73-393) Urine Opiates Screen Negative (NEGATIVE) Urine Barbiturates Screen Negative (NEGATIVE) Phencyclidine (PCP) Screen Negative (NEGATIVE) Urine Amphetamines Screen Negative (NEGATIVE) Urine Benzodiazepines Screen Negative (NEGATIVE) Urine Cocaine Screen Negative (NEGATIVE) Urine Marijuana (THC) Screen Positive (NEGATIVE) H Serum Alcohol 81 mg/dL CT/MRI/US Diagnostic Results CT/MRI/US Diagnostic Results : Imaging Test Ordered: abd pelvis Impression 's breast augmentation. Hepatic steatosis. No evidence of of renal stones. Myomatous uterus. Appendix unremarkable. Fat-containing umbilical hernia Last Vital Signs Date Time Temp Pulse Resp B/P (MAP) Pulse Ox O2 Delivery O2 Flow Rate FiO2 10/22/17 03:42 98.4 78 19 140/79 100 Room Air 98.4 Status: improved Disposition: XFER SHT-TRM HOSP Condition: Serious Referrals: [facility]ERR[facility] (PCP) Tai Matt M.D. Oct 21, 2017 23:52
[2017-10-21 23:58] LABS: BASOPHILS % (AUTO) 1.1 % (0.0-2.0); EOSINOPHILS % (AUTO) 1.2 % (0.0-3.0); HEMATOCRIT 45.3 % (37.0-47.0); HEMOGLOBIN 16.1 G/DL (12.0-16.0); LYMPHOCYTES % (AUTO) 33.8 % (20.0-45.0); MEAN CORPUSCULAR VOLUME 91 FL (80-99); MONOCYTES % (AUTO) 9.4 % (1.0-10.0); NEUTROPHILS % (AUTO) 54.6 % (45.0-75.0); PLATELET COUNT 143 K/UL (150-450); RED BLOOD COUNT 4.99 M/UL (4.20-5.40); RED CELL DISTRIBUTION WIDTH 12.5 % (11.6-14.8); WHITE BLOOD COUNT 5.6 K/UL (4.8-10.8)
[2017-10-21 23:59] LABS: BILIRUBIN, URINE NEGATIVE (NEGATIVE); GLUCOSE, URINE (UA) NEGATIVE (NEGATIVE); KETONES,URINE 3+ (NEGATIVE); LEUKOCYTE ESTERASE ,URINE 2+ (NEGATIVE); NITRITE,URINE NEGATIVE (NEGATIVE); PH,URINE 5 (4.5-8.0); PROTEIN,URINE 2+ (NEGATIVE); UROBILINOGEN,URINE 1 MG/DL (0.0-1.0)
[2017-10-22 00:11] LABS: APPEARANCE,URINE CLOUDY; COLOR,URINE YELLOW; INR 0.9 (0.9-1.1)
[2017-10-22 00:18] LABS: ALANINE AMINOTRANSFERASE 79 U/L (12-78); ALBUMIN 4.7 G/DL (3.4-5.0); ALBUMIN/GLOBULIN RATIO 1.1 (1.0-2.7); ALKALINE PHOSPHATASE 110 U/L (46-116); ANION GAP 24 mmol/L (5-15); ASPARTATE AMINO TRANSFERASE 93 U/L (15-37); BILIRUBIN,TOTAL 1.1 MG/DL (0.2-1.0); BLOOD UREA NITROGEN 8 mg/dL (7-18); CALCIUM 10.4 MG/DL (8.5-10.1); CARBON DIOXIDE 21 MMOL/L (21-32); CHLORIDE 85 MMOL/L (98-107); CREATININE 0.7 MG/DL (0.55-1.30); SODIUM 131 MMOL/L (136-145)
[2017-10-22 00:19] LABS: POTASSIUM 2.4 MMOL/L (3.5-5.1)
[2017-10-22 00:21] LABS: BILIRUBIN,DIRECT 0.3 MG/DL (0.0-0.3)
[2017-10-22] MEDS ORDERED: cefTRIAXone 1 GM in NS 55 ML IVPB ONE (00:45)
[2017-10-22] MEDS ORDERED: Metoclopramide 10mg/2ml Inj IVP ONE (01:00)
[2017-10-22] MEDS ORDERED: DiphenhydrAMINE 50mg/ml Inj IVP ONE (01:00)
[2017-10-22] MEDS ORDERED: LORazepam Inj 2mg/ml 1ml IV ONE (02:00)
[2017-10-22 02:24] VITALS: BP 166/97
[2017-10-22 03:22] VITALS: BP 140/79
[2017-10-22 03:42] VITALS: BP 140/79
--- NOTE | 2017-10-22 12:34 | Diagnostic Imaging Report ---
Clinical Indication: Abdominal pain for one week Technique: Patient given a limited amount of oral contrast. IV administration nonionic contrast. Venous phase spiral acquisition obtained through the abdomen and pelvis. Multiplanar reconstructions were generated. Total dose length product 627.8 mGycm. CTDIvol(s) 12.57 mGy. Dose reduction achieved using automated exposure control Comparison: 05/08/2017 fatty liver, also previously described contrast study, 06/17/2017 noncontrast exam Findings: Previously reported 2 mm diameter left renal calculus is now seen at in the left proximal ureter. This does not result in any hydronephrosis or apparent inhibition of excretory function, but the proximal ureter is slightly more ectatic than on the previous exam. No focal renal parenchymal abnormality is demonstrated. The appendix is normal. No evidence of diverticulosis or diverticulitis. No small bowel distention. No free or loculated intraperitoneal gas or fluid. There is a small sliding-type hiatal hernia. The liver demonstrates diffuse low attenuation, as previously. No focal abnormality. The gallbladder, bile ducts, pancreas, spleen, adrenals, are all unremarkable. No retroperitoneal or mesenteric mass or adenopathy. There is a small fat-containing umbilical hernia, also evident previously. No pelvic mass or adenopathy. There is a tiny enhancing lesion at the periphery of the uterus, consistent with a small subserosal fibroid. The bladder is distended, otherwise unremarkable. The included lung bases are clear. Again demonstrated are bilateral breast implants. The bones demonstrate a mild scoliotic deformity and minimal degenerative change. When compared to the previous exam, the previously described left renal calculus Impression: Previously demonstrated left renal calculus is now at in the left proximal ureter. There is no hydronephrosis, although the proximal ureter is slightly more ectatic than on the previous study. This finding was not reported by [facility], was reported to Dr. Smart in the emergency room at the time of interpretation. [facility] has been notified of the discrepancy Fatty liver, also previously described Small uterine fibroid Other findings as noted, including small fat-containing umbilical hernia, small sliding-type hiatal hernia, bilateral breast implants, mild scoliotic deformity, minimal degenerative spondylosis The remainder of the exam is in agreement with the preliminary interpretation provided overnight by [facility] The CT scanner at [facility] is accredited by the [employer] and the scans are performed using protocols designed to limit radiation exposure to as low as reasonably achievable to attain images of sufficient resolution adequate for diagnostic evaluation.
== END 2017-10-22 03:42 | disposition short-term general hospital (02) ==
LOC: EDBD 23:27 → EMR 23:39
DX: N12 Tubulo-interstitial nephritis, not specified as acute or chronic (principal); R11.2 Nausea with vomiting, unspecified; E87.6 Hypokalemia; R10.9 Unspecified abdominal pain; F10.20 Alcohol dependence, uncomplicated; F32.9 Major depressive disorder, single episode, unspecified; I10 Essential (primary) hypertension; F17.200 Nicotine dependence, unspecified, uncomplicated; K42.9 Umbilical hernia without obstruction or gangrene; K76.0 Fatty (change of) liver, not elsewhere classified; Z87.442 Personal history of urinary calculi
CPT/HCPCS: 36415; 74177; 80053; 80307; 80329; 81003; 81025; 82248; 83690; 85025; 85610; 85730; 87086; 96365; 96367; 96374; 96375; 96376; 99285; J0696; J1200; J1885; J2270; J2405; J2765; J3480; Q9967